=== PATIENT | male | born 1930 | race Caucasian/White ===

== ENCOUNTER 2018-01-07 09:43 | Inpatient (IN) | payer MEDICARE ==
[2018-01-07 10:15] LABS: #Basophils 0.1 thou/uL (0.0-0.2); #Eosinphils 0.1 thou/uL (0.0-0.7); #Lymphocytes 1.6 thou/uL (1.20-3.40); #Monocytes 0.8 thou/uL (0.11-0.59); #Neutrophils 14.9 thou/uL (1.40-6.50); %Basophils 0.5 % (0.0-1.0); %Eosinophils 0.4 % (0.0-10.0); %Monocytes 4.8 % (0.0-10.0); %Neutrophils 85.3 % (42.0-75.0); Hemoglobin 12.1 g/dL (14.0-18.0); Mean Corpuscular HGB CONC 32.7 g/dL (32.0-36.0); Mean Corpuscular Hemoglobin 29.3 pg (27.0-31.0); Mean Corpuscular Volume 89.6 fL (78.0-98.0); Mean Platelet Volume 10.8 fL (7.4-10.4); Platelet Count 209 thou/uL (130-400); RBC Distribution Width 13.1 % (11.5-14.5); Red Blood Cell (RBC) Count 4.14 mill/uL (4.70-6.10); White Blood Cell (WBC) Count 17.5 thou/uL (4.8-10.8)
[2018-01-07 10:27] LABS: ALT (SGPT) 13 U/L (8-55); AST (SGOT) 13 U/L (5-34); Albumin 3.5 g/dL (3.4-4.8); Alkaline Phosphatase 136 U/L (40-150); Anion Gap 14 mmol/L (10-20); BUN (Urea Nitrogen) 28 mg/dL (8.4-25.7); Bilirubin, Total 0.4 mg/dL (0.2-1.2); CK (CPK) 31 U/L (30-200); Calc. Creatinine Clearance 0 mL/min (70-130); Calcium 9.5 mg/dL (7.8-10.44); Carbon Dioxide 22 mmol/L (23-31); Chloride 110 mmol/L (98-107); Estimated GFR-MDRD 71; Globulin 2.7 g/dL (2.4-3.5); Glucose 102 mg/dL (83-110); Potassium 3.1 mmol/L (3.5-5.1); Protein, Total 6.2 g/dL (5.8-8.1); Sodium 143 mmol/L (136-145)
[2018-01-07 10:28] LABS: CKMB 3.1 ng/mL (0-6.6)
[2018-01-07 10:51] LABS: Lipase 7 U/L (8-78)
[2018-01-07] MEDS ORDERED: Potassium Chloride 20 MEQ TAB ONE (10:51)
--- NOTE | 2018-01-07 11:46 | CT ---
CTA OF THE CHEST AND ABDOMEN WITH CONTRAST: Date: 01/07/18 HISTORY: Abdominal pain that is severe in the epigastrium and pulsatile aorta. TECHNIQUE: Multiple contiguous axial images were obtained in a CTA of the chest and abdomen with contrast. 3D sa gittal and coronal MIP reformats were performed. FINDINGS: Emphysematous changes are seen in the lungs. No suspicious pulmonary nodule is seen. No focal infiltr ate is present. No pneumothorax or pleural effusion seen. There is a large exophytic mass emanating from the right kidney measuring approximately 4.6 cm in siz e. This is suspicious for a renal cell carcinoma. A small hypodensity emanating from the posterior as pect of the right kidney likely represents a small, simple cyst. A 1.4 cm cyst is seen in the liver. The gallbladder, adrenal glands, spleen, and pancreas are unremarkable. There is a hypodensity in the left kidney, measuring 1.6 cm in size, which likely represents a cyst. The visualized large and small bowel are unremarkable. No abdominal adenopathy is seen. The thoracic aorta is normal in caliber without evidence of dissection or aneurysmal dilatation. Athe rosclerotic disease is seen in the descending aorta. The infrarenal aorta demonstrates severe atheros clerotic disease without aneurysmal dilatation or focal stenosis. The celiac trunk, SMA, and KIMBERLY are patent. There is severe atherosclerotic disease at the ostia of the celiac trunk and SMA. A single re nal artery is seen on each side. Both of the renal arteries demonstrate severe diffuse atheroscleroti c disease. There is severe diffuse atherosclerotic disease in the internal and external iliac arteri es. IMPRESSION: 1. No evidence of aneurysmal dilatation or dissection of the aorta. 2. Right renal mass is suspicious for a renal cell neoplasm. Urologic consultation is recommended. 3. Renal cysts. 4. Hepatic cyst. 5. There is severe atherosclerotic disease in the aorta and its branch vessels. POS: ABELARDO
[2018-01-07] MEDS ORDERED: Iopamidol 370 76% 100 ML VIAL ONE (13:02)
[2018-01-07 13:06] VITALS: BMI 18.7
[2018-01-07 13:53] LABS: Troponin I 0.044 ng/mL (< 0.028)
--- NOTE | 2018-01-07 14:18 | PDOC.FPRHP ---
- History of Present Illness Chief Complaint: Abdominal Pain History of Present Illness: Mr Alvarez is a 87yo male with pmh of COPD, A-fib, BPH, HTN, and HLD presenting with severe abdominal pain and diarrhea. He is from [place] and is currently in town to visit grandchildren. Crampy periumbilical abdominal pain started one week ago and stopped this morning. He has also had episodes of watery diarrhea, reports only 1x per day. Pain reduced from 7/10-> 3/10 with BM. The pain actually started last March but was much less severe in intensity and was also relieved by BM's at that time. He has this pain ~1x per month. Reports that no food triggers the abdominal pain or diarrhea. Currently in 0/10 pain. Reports seeing a specialist last Jun and being diagnosed with "something with a lot of gas" and being instructed to avoid certain foods. Also reports 35lb wt loss since March that he attributes to food aversion for fear it may cause the pain to return or worsen. Denies bloody stool, nausea, vomiting, fever, chills, or constipation. He presented to an OSH where a CT was preformed showing a right renal mass and infrarenal thrombus without aneurysmal dilation or dissection. He denies any flank pain, hematuria or changes in urination. ED Course: EKG, CT scan preformed. Cardiology was consulted for EKG findings of a-fib, bradycardia, PVC's. Nephrology was consulted for renal mass. K+ replaced. IVFs and C diff test. - Allergies/Adverse Reactions Allergies Allergy/AdvReac Type Severity Reaction Status Date / Time No Known Allergies Allergy Verified 01/07/18 13:05 - Home Medications Medication Instructions Recorded Confirmed Type Atorvastatin Calcium 40 mg PO DAILY 01/07/18 01/07/18 History Cholecalciferol (Vitamin D3) 400 unit PO BID 01/07/18 01/07/18 History [Vitamin D3] Finasteride 5 mg PO DAILY 01/07/18 01/07/18 History Lactose-Reduced Food [Ensure 237 ml PO BID 01/07/18 01/07/18 History Enlive] Lisinopril 10 mg PO DAILY 01/07/18 01/07/18 History Pramipexole Di-HCl [Pramipexole 0.25 mg PO BID 01/07/18 01/07/18 History Dihydrochloride] Terazosin HCl 10 mg PO HS 01/07/18 01/07/18 History Tiotropium [Spiriva Handihaler] 18 mcg PO BID 01/07/18 01/07/18 History - History PMHx: COPD, A-fib, HTN, HLD, Restless leg, CVA 1992, CAD s/p TN 1992 PSHx: carpal tunnel release right wrist FHx: Mother- brain cancer. Father- of stroke Social: Current smoker 1/2 pk per day, 70yrs. Denies drug or alcohol use. - Review of Systems General: reports: weight/appetite/sleep changes. denies: fever/chills ENT: denies: nasal congestion, rhinorrhea Respiratory: reports: shortness of breath (baseline from COPD). denies: cough Cardiovascular: denies: chest pain, edema Gastrointestinal: reports: diarrhea, abdominal pain. denies: nausea, vomiting, constipation, GI bleeding Genitourinary: reports: other (no hematuria or flank pain). denies: dysuria Skin: denies: rashes, lesions Musculoskeletal: denies: pain, swelling Neurological: denies: syncope, weakness - Vital signs BP: 126/62 HR: 61 RR: 20 Tmax: 98.0 Pox: 97% on RA Wt: 64.4kg - Physical Exam Constitutional: NAD, awake, alert and oriented, well developed HEENT: normocephalic and atraumatic, EOMI, MMM, oropharynx clear Neck: trachea midline Heart: pulses present, no edema, other (Bradycardic, irregularly irregular) -Heart: Bradycardic, irregular Lungs: other (Wheezing bilaterally) -Lungs: Scattered wheezing Abdomen: soft, non-tender, bowel sounds present FMR H&P: Results - Labs Result Diagrams: 01/08/18 04:39 01/08/18 04:39 Lab results: WBC 17.5 thou/uL (4.8-10.8) H 01/07/18 10:00 Hgb 12.1 g/dL (14.0-18.0) L 01/07/18 10:00 Hct 37.1 % (42.0-52.0) L 01/07/18 10:00 MCV 89.6 fL (78.0-98.0) 01/07/18 10:00 Plt Count 209 thou/uL (130-400) 01/07/18 10:00 Neutrophils % 85.3 % (42.0-75.0) H 01/07/18 10:00 Sodium 143 mmol/L (136-145) 01/07/18 10:00 Potassium 3.1 mmol/L (3.5-5.1) L 01/07/18 10:00 Chloride 110 mmol/L (98-107) H 01/07/18 10:00 Carbon Dioxide 22 mmol/L (23-31) L 01/07/18 10:00 BUN 28 mg/dL (8.4-25.7) H 01/07/18 10:00 Creatinine 1.00 mg/dL (0.7-1.3) 01/07/18 10:00 Glucose 102 mg/dL (83-110) 01/07/18 10:00 Lactic Acid 1.8 mmol/L (0.5-2.2) 01/07/18 10:00 Calcium 9.5 mg/dL (7.8-10.44) 01/07/18 10:00 Total Bilirubin 0.4 mg/dL (0.2-1.2) 01/07/18 10:00 AST 13 U/L (5-34) 01/07/18 10:00 ALT 13 U/L (8-55) 01/07/18 10:00 Alkaline Phosphatase 136 U/L (40-150) 01/07/18 10:00 Creatine Kinase 31 U/L (30-200) 01/07/18 10:00 CK-MB (CK-2) 3.1 ng/mL (0-6.6) 01/07/18 10:00 Serum Total Protein 6.2 g/dL (5.8-8.1) 01/07/18 10:00 Albumin 3.5 g/dL (3.4-4.8) 01/07/18 10:00 Lipase 7 U/L (8-78) L 01/07/18 10:00 - EKG Interpretation EKG: a fib with unifocal premature ventricular complexes with frequent premature ventricular complexes - Radiology Interpretation CT scan - abdomen Status: report reviewed by me Additional comment: 4cm mass arisng from right kidney suspicious for malignancy. 2.8cm infrarenal calcifications and some thrombus without dilation. FMR H&P: A/P - Problem List (1) Renal mass Current Visit: Yes Status: Acute Code(s): N28.89 - OTHER SPECIFIED DISORDERS OF KIDNEY AND URETER (2) Atrial fibrillation Current Visit: Yes Status: Chronic Code(s): I48.91 - UNSPECIFIED ATRIAL FIBRILLATION (3) Bradycardia Current Visit: Yes Status: Acute Code(s): R00.1 - BRADYCARDIA, UNSPECIFIED (4) Leukocytosis Current Visit: Yes Status: Acute Code(s): D72.829 - ELEVATED WHITE BLOOD CELL COUNT, UNSPECIFIED (5) Hypokalemia Current Visit: Yes Status: Acute Code(s): E87.6 - HYPOKALEMIA (6) Normocytic anemia Current Visit: Yes Status: Acute Code(s): D64.9 - ANEMIA, UNSPECIFIED (7) Gastroenteritis Current Visit: Yes Status: Acute Code(s): K52.9 - NONINFECTIVE GASTROENTERITIS AND COLITIS, UNSPECIFIED (8) HLD (hyperlipidemia) Current Visit: Yes Status: Chronic Code(s): E78.5 - HYPERLIPIDEMIA, UNSPECIFIED (9) HTN (hypertension) Current Visit: Yes Status: Chronic Code(s): I10 - ESSENTIAL (PRIMARY) HYPERTENSION (10) COPD (chronic obstructive pulmonary disease) Current Visit: Yes Status: Chronic (11) Restless leg syndrome Current Visit: Yes Status: Chronic (12) Tobacco abuse Current Visit: Yes Status: Chronic Code(s): Z72.0 - TOBACCO USE - Plan Mr Alvarez is a 87yo male with pmh of a-fib, 1. A-fib, Bradycardia, PVC's - Troponins .05-> .044 - Asymptomatic - hx of "irregular heartbeat" - Cardiology Consulted - Echo - Mg, Phos, TSH 2. Renal Mass on CT scan - No hematuria, dysuria, or urinary changes - Urology Consulted 3. Abdominal pain, diarrhea likely 2/2 gastroenteritis - CT showed no evidence of aortic dissection - WBC 17.5 - CBC in AM - C diff pending - Fecal lactoferrin 4. Leukocytosis - likely 2/2 to gastroenteritis - no other sources for infection 5. Normocytic Anemia - could be a result of a Renal cell carcinoma - Continue to monitor 6. Hypokalemia - 3.1 - 40 PO in ED - BMP in AM - Replace another 40 7. COPD - Continue Spiriva 8. HLD - Continue Atorvastatin 9. BPH - Continue Finesteride and Terazosin 10. HTN - Continue Lisinopril 11. Restless leg - Continue Pramipexole 12. Tobacco Abuse - Doula regarding cessation DVT ppx: SCDs & Lovenox GI ppx: None indicated Code Status: DNR/DNI Disposition/LOS: Admit to Tele LOS likely >2 days FMR H&P: Upper Level - Pertinent history 87 y/o M PMHx of a-fib, COPD, CAD, HTN, and HLD presents with abdominal pain and diarrhea. The abdominal pain has been going on since March and worsened this past week, but improves with bowel movements. The patient was seen by a physician in [place] who altered his diet to decrease his "gas pain". The patient denies any hematochezia, melena, or fevers. He has a 20 lb weight loss over the past year, but he has adjusted his diet due to his abdominal pain and diarrhea, so thinks it may be due to this. - Pertinent findings Temp: 97.5 HR 44 RR 16 O2 sat 93% on RA Gen: Well-developed, well-nourished elderly male in NAD CV: bradycardic, irregularly irregular rhythm, 2+ radial and pedal pulses Resp: No use of accessory muscles of respiration, decreased breath sounds with diffuse wheezes Abd: non-distended, soft, mildly TTP in RLQ, LLQ, normoactive bowel sounds, no rebound or guarding Back: no CVA tenderness Ext: no edema - Plan Date/Time: 01/07/18 1341 I, Asiya Drummond, have evaluated this patient and agree with findings/plan as outlined by product management internship resident. Pertinent changes/additions are listed here. 1. Bradyarrhythmia - Will admit to tele. Patient is asymptomatic. EKG bradycardic and showed evidence of PVC's, a-fib and possible a-flutter with aberrancy. Consult cardiology. Will get echo. Will check TSH, mag, phosphorous. 2. R Renal Mass - New 4.6 cm R renal mass seen on CTA that is concerning for RCC. Pt has had recent weight loss. Will consult urology and check a UA. 3. Gastroenteritis - Pt has a WBC of 17.5 with 85% neutrophils. He is having 1- 2 watery BMs/day over the last week. He may have IBS, but will check C. diff and fecal lactoferrin. LR @ 105 mL/hr. 4. ALEXANDREA - Unknown baseline. Initial Cr 1.0 with GFR of 71. Likely 2/2 dehydration with recent h/o diarrhea. Will give IVF and monitor. 5. Leukocytosis - Initial WBC of 17.5 with no other signs of systemic infection. Likely 2/2 Gastroenteritis. Will give IVF and monitor for improvement. 6. Indeterminate Troponins - initial trop was 0.05, but repeat trended down to 0.044. Patient has no chest pain. EKG showed no ST/T wave changes concerning for acute ischemia. Will repeat if new chest pain. Will start aspirin. 7. Normocytic Anemia - mild anemia of 12.1, could be 2/2 RCC if this diagnosis is confirmed. 8. Hypokalemia - Will replete and monitor. 9. HLD - Continue home meds 10. HTN - Continue home meds 11. a-fib - not on any meds at baseline. Will monitor on tele. CHADs2-Vasc score 5, Has-Bled 2. Will discuss risks and benefits of anticoagulation. 12. COPD - Not in an acute exacerbation. Will continue home meds plus PRN duonebs. 13. h/o CVA - Severe atherosclerotic disease seen on CTA as well. Continue statin. 14. CAD s/p TN - Continue statin. 15. BPH - Will continue home meds. 16. Tobacco Abuse - Doula about cessation. VTE ppx: Lovenox Code status: DNR Attending Addendum - Attending Addendum Date/Time: 01/08/18 0906 I personally evaluated the patient and discussed the management with Dr. Barber /Hoda. I agree with the History, Examination, Assessment and Plan documented above with any addition or exceptions noted below. Please see event note dated 01/07/18 for further details.
[2018-01-07] MEDS ORDERED: Acetaminophen 325 MG TAB PO PRN (15:51)
[2018-01-07] MEDS ORDERED: Potassium Chloride 20 MEQ TAB PO SCH (16:15)
[2018-01-07] MEDS: Lactated Ringer's 1,000 ML IV SCH (16:38)
--- NOTE | 2018-01-07 16:39 | PDOC.EVN ---
Attending Addendum - Attending Addendum Date/Time: 01/07/18 7068 I personally evaluated the patient and discussed the management with Dr. Barber /Hoda. I agree with the History, Examination, Assessment and Plan documented in the H& P with any addition or exceptions noted below. Patient with history of COPD, CAD presenting with several month history of periumbilical abdominal pain associated with cramping, flatulence, and watery diarrhea. He reports these symptoms are unchanged with foods, but that over the last 2 weeks his symptoms have been worse. He presents today due to that pain. His exam is overall benign except for temporal wasting and supraclavicular wasting. He admits to weight loss of 30 pounds over the last few months. His HR has been irregular and in the 40s, EKG shows multiple abnormalities culminanating in an irregular bradydysrhythmia. He is asymptomatic when ambulating or standing. Labs show leukocytosis and elevated creatinine, unknown baseline. Imaging is pertinent for diffuse atherosclerosis, and a R renal mass concerning for RCC. Patient to be admitted to telemetry for further evaluation and workup of his bradycardia, abdominal pain, and renal mass. Cardiology and Urology to be consulted. Will obtain UA, full electrolytes, and fecal labs to evaluate his abdominal pain. Anticipate several days hospitalization and further mgmt per specialist evaluation and recommendations.
[2018-01-07 16:49] LABS: Magnesium 1.6 mg/dL (1.6-2.6); Phosphorus 3.1 mg/dL (2.3-4.7)
[2018-01-07] MEDS ORDERED: Albuterol Sulfate 2.5 mg/3 ml Neb NEB PRN (17:00)
[2018-01-07 18:38] LABS: Bilirubin Negative (Negative); Blood, Urine Negative (Negative); Clarity CLEAR (Clear); Glucose, Urine (Dipstick) Negative (Negative); Leukocyte Negative (Negative); Nitrite Negative (Negative); Protein, Urine (Dipstick) 100 mg/dL (Neg-Trace); Urobilinogen 0.2 mg/dL (0.2-1.0); pH, Urine 5.5 (5.0-9.0)
[2018-01-07 18:41] LABS: Bacteria/HPF None Seen HPF (None Seen); Hyaline Casts/LPF 0-3 HYALINE CAST LPF (0-3 Hyaline); Pathc Cast-AUWi Flag 0.29 (0-2.49); RBC/HPF 0-3 HPF (0-3); Squamous Epithelial 0-3 HPF (0-3); WBC/HPF 0-3 HPF (0-3)
[2018-01-07 18:42] LABS: Specific Gravity, Urine 1.043 (1.002-1.036)
[2018-01-07] MEDS: Ipratropium Bromide 2.5 ml Neb NEB SCH (20:27)
[2018-01-07] MEDS ORDERED: Non-Formulary Item 1 EACH (Lactose-Reduced Food [Ensure Enlive] 237 ML) PO SCH (21:00)
[2018-01-07] MEDS: Cholecalciferol (Vitamin D3) 400 UNITS TAB PO SCH (21:08)
[2018-01-07] MEDS: Pramipexole Di-HCl 0.25 MG TAB PO SCH (21:08)
[2018-01-07] MEDS: Terazosin HCl 5 MG CAP PO SCH (21:09)
[2018-01-07] MEDS ORDERED: Rivaroxaban 10 MG TAB PO SCH (23:30)
[2018-01-08] MEDS: Ipratropium Bromide 2.5 ml Neb NEB SCH ×4 (00:29→18:23)
--- NOTE | 2018-01-08 00:39 | CON ---
DATE OF CONSULTATION: 01/07/2018 REASON FOR CONSULTATION: Right renal mass, 4 cm in diameter. HISTORY OF PRESENT ILLNESS: Mr. 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 The patient has had ongoing problems with abdominal pain that has b een present for at least 6 or 7 months by his report. He has previously seen a specialist [place] about it, but did not receive any specific treatments. [facility] on 01[facility]07[facility] scanning of the abdomen and pelvis which revealed the presence o f the patient's right renal mass for which I am consulted as well as an abdominal aortic aneurysm whi ch is relatively small and in addition, calcifications of vasculature of the superior mesenteric jailene ry, renal arteries and significant portions of his aorta itself. Patient is a long-term smoker, grisel fuentes started at age 16 and is still smoking about 1/2 pack per day, he has been up to as many as three packs per day. Conservatively speaking, the patient has at least [id number] cigarette smoking his tory. He does suffer from COPD. Patient has a history of atrial fibrillation, but on evaluation her e seems to have primarily premature atrial contractions PACs. Patient does have a history of benign prostatic hypertrophy, hypertension as well and the peripheral vascular disease which has been identi fied on his CT scan. Patient denies any history of coronary artery stenting or coronary chest pain a t the present time, does not have any implant such as pacemakers or vascular implants. Patient's presenting complaint is that of abdominal pain. He has had this evaluated at least as a cl inic visit in [place]. Here, he reports abdominal pain which he reports crosses his abdomen in a h orizontal level. He reports it is sometimes on the right side and sometimes on the left. He does no manan that he has pain in his abdomen within 30 minutes of eating and as such has been avoiding eating large meals, this seems to improve his pain symptoms. PAST MEDICAL HISTORY: 1. COPD secondary to cigarette smoking. 2. History of atrial fibrillation or irregular heartbeat. 3. Hypertension. 4. History of cerebrovascular accident in 1992. 5. Coronary artery disease status post myocardial infarction in 1992. He has had no revascularizati on or stenting. He reports that he has many collaterals in his heart and did not require a stent bas ed on that. PAST SURGICAL HISTORY: Patient had a right carpal tunnel release. No other surgical history. No ge nitourinary surgeries in the past. FAMILY MEDICAL HISTORY: Patient's mother had brain cancer and the patient's father of a stroke. 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 He is a and has a current one-half pack per day smoker. He has smoked up to 3 packs a day in the past and has at least a 100- pack-year cigarette smoking history. He started around age 16. Patient does not use drugs or alcoho l. REVIEW OF SYSTEMS: General: Patient has lost some weight over the last year due to his decreased ab ility to eat. He feels more comfortable if not eating as much of food as he had in the past. A larg e meal could upset him for some time. He does not report any signs of infection such as fever or chi lls. HEENT: Negative. Pulmonary: Patient does have baseline disease with resulting shortness of b reath and utilizes a nebulizer daily for that, only one nebulizer treatment required in the morning. He is not coughing up any blood or sputum of significance. Cardiovascular: Patient denies specific ally chest pain. He does report that he has an irregular heartbeat. Gastrointestinal: Patient repo rts diarrhea and abdominal pain. He reports a postprandial stomach discomfort which begins about 30 minutes after eating a meal. He inquires as to whether drinking milk might make him better. He noti adriano some improvement if he drinks milk in his symptoms. Genitourinary: Patient specifically denies flank pain and hematuria. He does not report any urinary symptoms. He does not report difficulties with his urinary stream. Skin: No specific complaints. No surgical scars except on his extremity o n the right. Musculoskeletal: Negative except for the carpal tunnel release. Neurologic: No compl aints or disorders. PHYSICAL EXAMINATION: VITAL SIGNS: The patient's pulse is 55. I evaluated his cardiac system on both in person and on the personnel monitor, he has PACs, not atrial fibrillation. Current temperature 98.3, respiratory rate is 22, and his O2 saturation is 96% on room air, blood pressure is 169/72. GENERAL: This is a pleasant, awake and alert, GCS 15, white male in no apparent distress. HEENT: Extraocular movements are intact. Sclerae are anicteric. Oropharynx is clear. NECK: Supple. LUNGS: Clear to auscultation bilaterally. He has moderate COPD type changes. CARDIAC: The patient has an irregular cardiac rhythm. He is moderately bradycardic at exam. ABDOMEN: Soft and nontender. He has slight subtle fullness on the right side. There is no fullness on the left side. The patient's aorta can be palpated in the midline. There is no suprapubic fulln ess. GENITOURINARY: Phallus is circumcised. Urethral meatus appears adequate. Testes are found present bilaterally in the scrotum. They are smooth, anodular, nontender. There is no evidence of inguinal canal hernia. RECTAL: Digital rectal examination is performed and finds a rock hard prostate gland which palpates to greater than 45 grams. It would be considered to be suspicious for malignancy if this was a maya rn. LABORATORY STUDIES: Patient's white count is elevated to 17,500, hemoglobin is 12.1 with hematocrit of 37.1. There is relative left shift with 85% neutrophils. The ANC is elevated at 14.9. Chemistri es show the patient's blood urea nitrogen elevated at 28 with a creatinine of 1.0, potassium low at 3 .1, carbon dioxide 22. Cardiac troponins are moderately elevated at 0.044 and 0.050 on the first two tests. His estimated GFR by the MDRD formula is 71. I would question the result based on the patie nt's body protein content. This is probably not an accurate estimate of his true kidney function. RADIOLOGIC STUDIES: A CT dissection protocol was performed this morning at 9:55 a.m. on 01/07/2018. This study demonstrates atherosclerotic disease in the aorta with some plaque in the infrarenal loca tion. There is some wall thickening in this area and peripheral calcification. This is not at this diameter less than 2 cm overall diameter risky. There are calcifications in the superior mesenteric artery and related vasculature. Renal cysts are present in both kidneys; in the right kidney, there is a solid renal mass in the mid peripheral anterior portion measuring over 4 cm in diameter which is highly suspicious for renal cell carcinoma. There is a low density hepatic cyst present. ASSESSMENT AND PLAN: 1. Renal mass. This is not an emergency condition, certainly can be managed as an outpatient. The patient at the present time is disinclined to proceed with any intervention. I did discuss available options would include observation as he is considering versus actual interventions which would be pa rtial nephrectomy or radical nephrectomy on the right. Radiofrequency ablation would require operati ve exploration as the patient's colon anteriorly is in contact with the renal mass. A combined radio frequency ablation and partial nephrectomy could also be performed. Cryotherapy can also be delivere d, but once again require operative exploration and release of the colon along the white line of Told t to expose the tumor went out to contact with the colon. This patient may follow up with me in my o ffice as an outpatient. He may wish to undergo additional imaging studies over time. Alternatively, he may follow up at the [facility] in [place] regarding his renal mass. 2. Enlarged prostate gland with firmness. Patient's PSA number is unknown. He has an indurated pro state gland generally in patients with less than 10 years of life expectancy PSA testing and follow u p is not recommended unless the patient is in urinary retention and he has no complaints along those lines at this point. I would not recommend PSA testing in this patient unless he develops an obstruc tive urinary process. 3. Abdominal pain presentation. This could reflect ischemic bowel or a process which is internal to the lumen of the stomach or duodenum. The EGD might be helpful in consideration of gastroenterology evaluation should be given. 4. Infectious Disease concerns. Patient has elevated white count and left shift, part of which may be secondary to dehydration. Patient does not appear to have an infection at the present time except relation to his abdominal pain complaints which may indicate some type of infectious process in the bowel. Consideration of stool sample evaluation might also be helpful. Over 70 minutes of initial evaluation consultation assessment time was spent in the assessment of thi s patient today.
[2018-01-08] MEDS: Lactated Ringer's 1,000 ML IV SCH (02:44)
--- NOTE | 2018-01-08 02:47 | CON ---
NEPHROLOGY CONSULTATION DATE OF CONSULTATION: 01/07/2018 CONSULTING PHYSICIAN: Dr. Ojeda REASON FOR CONSULTATION: Right renal mass. REASON FOR ADMISSION: Weakness. HISTORY OF PRESENT ILLNESS: An 87-year-old male with history of atrial fibrillation, COPD, hypertens ion, hyperlipidemia, CVA, came to the hospital for abdominal pain, weakness, and diarrhea, was found to have a right renal mass and Nephrology was consulted. The patient denies any back pain, no chest pain. No hematuria, no fever, or chills. No nausea, vomiting, or diarrhea. PAST MEDICAL HISTORY: Possible COPD, atrial fibrillation, hypertension, hyperlipidemia, restless leg syndrome, CVA, CAD. PAST SURGICAL HISTORY: Carpal tunnel release surgery. HOME MEDICATIONS: Spiriva, lactulose, vitamin D, terazosin. ALLERGIES: No known drug allergies. SOCIAL HISTORY: No smoking, alcohol. FAMILY HISTORY: No history of ____ disease. REVIEW OF SYSTEMS: The following complete review of systems was negative, unless otherwise mentioned in the HPI or below: Constitutional: Weight loss or gain, ability to conduct usual activities. Sk in: Rash, itching. Eyes: Double vision, pain. ENT/Mouth: Nose bleeding, neck stiffness, pain, te nderness. Cardiovascular: Palpitations, dyspnea on exertion, orthopnea. Respiratory: Shortness of breath, wheezing, cough, hemoptysis, fever or night sweats. Gastrointestinal: Poor appetite, abdom inal pain, heartburn, nausea, vomiting, constipation, or diarrhea. Genitourinary: Urgency, frequenc y, dysuria, nocturia. Musculoskeletal: Pain, swelling. Neurologic/Psychiatric: Anxiety, depressio n. Allergy/Immunologic: Skin rash, bleeding tendency. PHYSICAL EXAMINATION: GENERAL: This is a well-built male in no apparent distress. VITAL SIGNS: Temperature 98.3, pulse 55, respiratory rate 18, blood pressure 116/70. HEENT: Head is atraumatic, normocephalic. Oral mucosa is moist. NECK: Supple. CARDIOVASCULAR: S1, S2 heart. Rate and rhythm regular. RESPIRATORY: Clear. MUSCULOSKELETAL: 1+ edema. DERMATOLOGIC: No skin rash. NEUROLOGIC: Alert, awake. PSYCHIATRIC: Normal mood and affect. LABORATORY: Hemoglobin 12.1, potassium 3.1, BUN is 28, creatinine is 1.0. IMAGING: CT dissection protocol showed a renal cyst and right renal mass suspicious for renal cell c arcinoma. ASSESSMENT AND PLAN: 1. Right renal mass. Urology evaluation 2. Hypokalemia, replace and monitor. 3. Chronic kidney disease stage 2, renal function is stable. 4. Mild anemia. 5. Edema, controlled. 6. Hypertension. Titrate medication. I would recommend a urology evaluation for his right renal mass. Control blood pressure and replace potassium. Thank you for the consult.
--- NOTE | 2018-01-08 03:57 | CON ---
DATE OF CONSULTATION: 01/07/2018 HISTORY OF PRESENT ILLNESS: Griselda Alvarez is a pleasant 87-year-old white male , who presented with abdominal pain and diarrhea. He has had arrhythmias, previous cardiac history, and Cardiology consultation was requested. He currently lives in [place], but was here visiting grandchildren. In 1992, he states that he had a syncopal episode and was taken to [facility] in [place] and underwent further evaluation. From his description , it sounds as if he had a totally occluded coronary artery with collateral filling. He did not have stent placement or a PTCA performed. He states that four days later he had a stroke that weakened his right side; however, this improved. He denies any chest discomfort since that time. Approximately 2 years ago, he was placed on Xarelto for unclear reasons. He states he has been told for many years he had an extra heart beat and irregular heart rhythm; however, he denies that he has ever been told that he had atrial fibrillation. He also denies any history of deep venous thrombosis or pulmonary embolism. I assume that somewhere along the line someone saw atrial fibrillation and placed him on the Xarelto; however, he does not recall that. The patient has been found to be bradycardic here; however, he denies ever having any further syncopal episodes after his myocardial infarction in 1992. He denies any lightheadedness or dizziness. PAST MEDICAL HISTORY: Hypercholesterolemia, COPD, hypertension, restless leg, history of stroke in 1992, myocardial infarction in 1992, questionable history of atrial fibrillation. MEDICATIONS: At home included atorvastatin 40 daily; vitamin D3; finasteride 5 mg daily; Ensure b.i.d.; lisinopril 10 mg daily; terazosin 0.4 mg at bedtime; Spiriva HandiHaler; and apparently Xarelto, unknown dose. ALLERGIES: None. OPERATIONS: Right carpal tunnel release. SOCIAL HISTORY: Continues to smoke approximately one-half pack per day. He does not drink. FAMILY HISTORY: Negative for coronary artery disease. REVIEW OF SYSTEMS: Twelve-point review of systems unremarkable except for the abdominal pain. PHYSICAL EXAMINATION: VITAL SIGNS: Blood pressure 169/72, pulse of 55. HEENT: PERRL. NECK: Supple. CHEST: Reveals expiratory wheezing. CARDIOVASCULAR: S1 and S2 are normal, without any S3, S4, or murmurs. Carotid upstrokes normal, without bruits. ABDOMEN: Normal bowel sounds, without tenderness or organomegaly. EXTREMITIES: Revealed no clubbing, cyanosis, or edema. NEUROLOGIC: Grossly intact. SKIN: Warm and dry. LABORATORY DATA AND IMAGING: EKG reveals sinus bradycardia with PVCs. The EKG was incorrectly interpreted as atrial fibrillation. There is incomplete right bundle branch block. He also does not have any evidence of atrial fibrillation in looking at his rhythm strip, just sinus bradycardia with bigeminal PVCs at times. Hemoglobin 12.1, hematocrit 37.1, white count 17,500, platelets 209. Sodium 143, potassium 3.1, chloride 110, carbon dioxide 22, BUN 28, creatinine 1.0. Troponin I 0.050. TSH is normal. CTA of the chest revealed no aneurysmal dilatation or dissection. There was a right renal mass suspicious for renal cell carcinoma, renal and hepatic cysts, and atherosclerotic disease of the aorta, emphysematous changes seen in the lungs. The celiac trunk, SMA and KIMBERLY have severe atherosclerotic disease. IMPRESSION: 1. Coronary artery disease, status post myocardial infarction in 1992. From his description, it sounds as if he had a totally occluded vessel with collateral filling. 2. Cerebrovascular accident, 4 days after myocardial infarction. 3. Asymptomatic bradycardia - he here does not have any evidence of atrial fibrillation with incorrect interpretation by the computer. Definite P waves on the EKG. He appears to be asymptomatic from this without any history of syncope, lightheadedness, or dizziness. This does not require any treatment; however, beta blockers should be avoided. 4. Questionable history of atrial fibrillation. He denies having atrial fibrillation, but apparently is taking Xarelto. 5. Hypertension. 6. Hyperlipidemia. 7. The patient continues to smoke. 8. Abdominal pain, questionable ischemic bowel disease. PLAN: Echocardiogram will be performed. The patient continued to be monitored. He does not require any treatment for his asymptomatic bradycardia at this time. Even though there is no evidence here of atrial fibrillation, I would restart his Xarelto at the time of discharge, so he can go back home for further evaluation of his current problems. LAURA
[2018-01-08 05:19] LABS: #Basophils 0.1 thou/uL (0.0-0.2); #Eosinphils 0.1 thou/uL (0.0-0.7); #Lymphocytes 1.6 thou/uL (1.20-3.40); #Monocytes 0.7 thou/uL (0.11-0.59); #Neutrophils 10.8 thou/uL (1.40-6.50); %Basophils 0.5 % (0.0-1.0); %Eosinophils 0.7 % (0.0-10.0); %Lymphocytes 12.3 % (21.0-51.0); %Monocytes 5.2 % (0.0-10.0); %Neutrophils 81.3 % (42.0-75.0); Mean Corpuscular Hemoglobin 29.1 pg (27.0-31.0); Mean Corpuscular Volume 90.9 fL (78.0-98.0); Mean Platelet Volume 9.8 fL (7.4-10.4); Platelet Count 218 thou/uL (130-400); RBC Distribution Width 13.1 % (11.5-14.5); Red Blood Cell (RBC) Count 3.78 mill/uL (4.70-6.10); White Blood Cell (WBC) Count 13.3 thou/uL (4.8-10.8)
--- NOTE | 2018-01-08 05:37 | PDOC.FM ---
- Subjective Subjective: Mr Alvarez is a 87yo male with pmh of COPD, A-fib, BPH, HTN, and HLD presenting with severe abdominal pain and diarrhea. Found to have EKG changes and a renal mass on CT. Today denies any pain and expresses he feels ready to go home. He was able to communicate the plan that was discussed from both Urology and Cardiology. - Objective MAR Reviewed: Yes Vital Signs & Weight: Vital Signs (12 hours) Temp Pulse Resp BP BP Pulse Ox 01/08/18 03:22 178/60 H 01/08/18 03:05 98.3 F 54 L 20 95 01/08/18 00:05 168/58 H 01/07/18 23:07 99.2 F 59 L 20 96 01/07/18 20:27 65 18 96 01/07/18 20:00 99.2 F 59 L 20 96 01/07/18 19:19 98.3 F 55 L 22 H 96 I&O: 01/06/18 01/07/18 01/08/18 06:59 06:59 06:59 Intake Total 340 Balance 340 Result Diagrams: 01/08/18 04:39 01/08/18 04:39 <Angella Barber - Last Filed: 01/08/18 12:54> - Objective Vital Signs & Weight: Vital Signs (12 hours) Temp Pulse Resp BP BP BP Pulse Ox 01/08/18 11:24 98.0 F 81 16 164/72 H 95 01/08/18 11:13 98.1 F 66 16 95 01/08/18 11:08 164/72 H 01/08/18 07:42 98.1 F 66 16 147/64 H 93 L 01/08/18 03:22 178/60 H 01/08/18 03:05 98.3 F 54 L 20 95 Weight Admit Weight 64.4 kg Weight 64.4 kg I&O: 01/07/18 01/08/18 01/09/18 06:59 06:59 06:59 Intake Total 340 Balance 340 Result Diagrams: 01/08/18 04:39 01/08/18 04:39 <Henri Sauer - Last Filed: 01/08/18 13:01> Phys Exam - Physical Examination Constitutional: NAD HEENT: PERRLA, moist MMs Respiratory: wheezing present Cardiovascular: RRR Gastrointestinal: soft, non-tender, positive bowel sounds Musculoskeletal: no edema, pulses present Neurological: moves all 4 limbs Psychiatric: normal affect, A&O x 3 Skin: no rash, cap refill <2 seconds <Angella Barber - Last Filed: 01/08/18 12:54> Dx/Plan (1) Renal mass Code(s): N28.89 - OTHER SPECIFIED DISORDERS OF KIDNEY AND URETER Status: Acute (2) Atrial fibrillation Code(s): I48.91 - UNSPECIFIED ATRIAL FIBRILLATION Status: Chronic (3) Bradycardia Code(s): R00.1 - BRADYCARDIA, UNSPECIFIED Status: Acute (4) Leukocytosis Code(s): D72.829 - ELEVATED WHITE BLOOD CELL COUNT, UNSPECIFIED Status: Acute (5) Hypokalemia Code(s): E87.6 - HYPOKALEMIA Status: Acute (6) Normocytic anemia Code(s): D64.9 - ANEMIA, UNSPECIFIED Status: Acute (7) Gastroenteritis Code(s): K52.9 - NONINFECTIVE GASTROENTERITIS AND COLITIS, UNSPECIFIED Status : Acute (8) HLD (hyperlipidemia) Code(s): E78.5 - HYPERLIPIDEMIA, UNSPECIFIED Status: Chronic (9) HTN (hypertension) Code(s): I10 - ESSENTIAL (PRIMARY) HYPERTENSION Status: Chronic (10) COPD (chronic obstructive pulmonary disease) Status: Chronic (11) Restless leg syndrome Status: Chronic (12) Tobacco abuse Code(s): Z72.0 - TOBACCO USE Status: Chronic (13) Abnormal prostate exam Code(s): R39.89 - OTHER SYMPTOMS AND SIGNS INVOLVING THE GENITOURINARY SYSTEM Status: Acute - Plan Plan: Mr Alvarez is a 87yo male with pmh of COPD, A-fib, BPH, HTN, and HLD presenting with severe abdominal pain and diarrhea. 1. A-fib, Bradycardia, PVC's - Asymptomatic - hx of "irregular heartbeat" - Monitor on tele - HR in the 50's, he is asymptomatic - CHADs2-Vasc: 5 - Cardiology Consulted - Mg 1.6, Phos 3.1, TSH 0.90 - Avoid BB's due to bradycardia, no other treatment recommended - Currently not in A-fib - Started Xarelto 01/07/[address] Mass on CT scan - No hematuria, dysuria, or urinary changes - UA no blood, no signs of infection - Urology Consulted, thorough exam and recommendations - Also abnormal prostate exam per Urology supporting possible malignancy dx - Urology recommends outpatient F/u. Discussed surgical options with patient. - No PSA testing in this pt with LE <10yrs and no urinary obstructive symptoms. Urinary symptoms developing in the future would warrant PSA testing. 3. Abdominal pain, diarrhea likely 2/2 gastroenteritis vs IBS vs ischemic bowel - CT showed no evidence of aortic dissection - WBC 17.5 - CBC in AM - LR @105ml/hr - C diff pending - Fecal lactoferrin pending - Urology recommended GI consult for EGD, pt is currently asymptomatic, may consider in the future - CTA may be helpful in r/o ischemic bowel while patient is having symptoms, this can be followed up outpatient 4. Leukocytosis - likely 2/2 to gastroenteritis - UA- no signs of infection - no other sources for infection 5. Normocytic Anemia - could be a result of a Renal cell carcinoma - Continue to monitor 6. Hypokalemia - 3.1 - 40 PO in ED - BMP in AM - Replace another 40 7. ALEXANDREA - resolved - unknown baseline - likely 2/2 to dehydration with recent history of diarrhea - IVF & monitor 8. COPD - stable - Continue Spiriva 9. HLD - Continue Atorvastatin 10. BPH - Continue Finesteride and Terazosin 11. HTN - Continue Lisinopril 12. Restless leg - Continue Pramipexole 13. 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 Hx of CAD with Indeterminate Troponins - inital 0.05-> 0.044 - No chest pain - EKG: no ST/T wave changes concerning for acute ischemia - Start aspirin DVT ppx: SCDs & Lovenox GI ppx: None indicated Code Status: DNR/DNI Dispo: Stable, likely discharge today <Angella Barber - Last Filed: 01/08/18 12:54> Attending Addendum - Attending Addendum Date/Time: 01/08/18 6519 I personally evaluated the patient and discussed the management with Dr. Barber and team. I agree with and repeated the History, Examination, Assessment and Plan documented above with any addition or exceptions noted below. Very pleasant gentleman. No abd pain, n/v/f/c. He has had one loose BM yesterday, two today. No hematochezia/melena. No cp/sob. We had a long discussion about his likely malignancy. He is disinclined, as mentioned by urology, to pursue any treatment at this point. Concerning his diarrhea that has resolved, his c. diff is negative and his lactoferrin positive. We discussed the atherosclerotic disease of his abdomen, and he will follow up with his PCP and strict ED warnings were given and he voiced understanding. That said, I do not think this was intestinal angina, as it was not a/w eating, and doubt ischemic colitis in general with his rapid improvement. Cards will follow outpt for his bradycardia. Urology will follow outpatient as well for his renal mass. Likely home today. <Henri Sauer - Last Filed: 01/08/18 13:01>
[2018-01-08 05:39] LABS: Anion Gap 12 mmol/L (10-20); BUN (Urea Nitrogen) 25 mg/dL (8.4-25.7); Calc. Creatinine Clearance 53 mL/min (70-130); Calcium 9.2 mg/dL (7.8-10.44); Carbon Dioxide 23 mmol/L (23-31); Cardiac Risk 3.3 (Less than 4.5); Chloride 112 mmol/L (98-107); Cholesterol 104 mg/dl (< 200 Desired); Estimated GFR-MDRD 80; Glucose 99 mg/dL (83-110); HDL Cholesterol 32 mg/dL (>60 Neg Risk); LDL Cholesterol, Calculated 58 mg/dL; Sodium 143 mmol/L (136-145); Triglycerides 72 mg/dL (Less than 150)
[2018-01-08] MEDS ORDERED: Enoxaparin Sodium 40 MG/0.4 ML SYRINGE SC SCH (09:00)
[2018-01-08] MEDS ORDERED: Lisinopril 10 MG TAB PO SCH (09:00)
[2018-01-08] MEDS: Finasteride 5 MG TAB PO SCH (11:07)
[2018-01-08] MEDS: Lisinopril 10 MG TAB PO SCH ×2 (11:08→21:19)
[2018-01-08] MEDS: Atorvastatin Calcium 40 MG TAB PO SCH (11:13)
[2018-01-08] MEDS: Cholecalciferol (Vitamin D3) 400 UNITS TAB PO SCH ×2 (11:13→21:19)
[2018-01-08] MEDS: Pramipexole Di-HCl 0.25 MG TAB PO SCH ×2 (11:13→21:19)
--- NOTE | 2018-01-08 12:49 | EKG ---
Test Reason : Blood Pressure : / mmHG Vent. Rate : 052 BPM Atrial Rate : 048 BPM P-R Int : 000 ms QRS Dur : 096 ms QT Int : 490 ms P-R-T Axes : 000 061 021 degrees QTc Int : 455 ms Normal sinus rhythm with slow ventricular response Premature ventricular complexes Incomplete right bundle branch block Cannot rule out Inferior infarct , age undetermined Abnormal ECG Confirmed by MIGEL TAPIA ([id number]) on 01/08/2018 12:48:47 PM Referred By: DEBRA Confirmed By:MIGEL TAPIA
[2018-01-08] MEDS ORDERED: Rivaroxaban 10 MG TAB PO SCH (18:00)
[2018-01-08] MEDS: Terazosin HCl 5 MG CAP PO SCH (21:22)
[2018-01-09] MEDS: Ipratropium Bromide 2.5 ml Neb NEB SCH ×5 (00:01→18:22)
[2018-01-09 05:22] LABS: #Basophils 0.1 thou/uL (0.0-0.2); #Eosinphils 0.1 thou/uL (0.0-0.7); #Lymphocytes 1.7 thou/uL (1.20-3.40); #Monocytes 0.6 thou/uL (0.11-0.59); #Neutrophils 8.5 thou/uL (1.40-6.50); %Basophils 0.6 % (0.0-1.0); %Eosinophils 1.3 % (0.0-10.0); %Lymphocytes 15.2 % (21.0-51.0); %Monocytes 5.4 % (0.0-10.0); %Neutrophils 77.5 % (42.0-75.0); Hemoglobin 10.7 g/dL (14.0-18.0); Mean Corpuscular HGB CONC 32.9 g/dL (32.0-36.0); Mean Corpuscular Hemoglobin 29.7 pg (27.0-31.0); Mean Corpuscular Volume 90.4 fL (78.0-98.0); Mean Platelet Volume 9.5 fL (7.4-10.4); Platelet Count 227 thou/uL (130-400); Red Blood Cell (RBC) Count 3.62 mill/uL (4.70-6.10); White Blood Cell (WBC) Count 10.9 thou/uL (4.8-10.8)
--- NOTE | 2018-01-09 05:24 | PDOC.FM ---
- Subjective Subjective: Mr Alvarez is a 87yo male admitted for abdominal pain and diarrhea. Denies abdominal pain but continues to have 1-2 episodes of diarrhea daily. Denies CP, n/v, lightheadedness. - Objective MAR Reviewed: Yes Vital Signs & Weight: Vital Signs (12 hours) Temp Pulse Resp BP BP Pulse Ox 01/09/18 04:00 158/60 H 01/09/18 03:40 97.7 F 70 20 94 L 01/09/18 00:05 98.8 F 58 L 20 96 01/08/18 21:19 142/56 H 01/08/18 20:00 97.8 F 85 20 94 L 01/08/18 19:22 97.8 F 85 20 95 01/08/18 18:23 66 12 94 L Weight Admit Weight 64.4 kg Weight 64.4 kg I&O: 01/07/18 01/08/18 01/09/18 06:59 06:59 06:59 Intake Total 340 500 Balance 340 500 Result Diagrams: 01/09/18 04:55 01/09/18 04:55 <Angella Barber - Last Filed: 01/09/18 09:23> - Objective Vital Signs & Weight: Vital Signs (12 hours) Temp Pulse Resp BP BP BP BP 01/09/18 11:57 172/68 H 01/09/18 11:24 98.1 F 69 16 01/09/18 09:41 82 18 01/09/18 09:09 164/72 H 01/09/18 09:06 164/72 H 01/09/18 08:05 97.4 F L 82 18 01/09/18 07:54 97.4 F L 68 18 01/09/18 04:00 158/60 H 01/09/18 03:40 97.7 F 70 20 Pulse Ox 01/09/18 11:57 01/09/18 11:24 94 L 01/09/18 09:41 95 01/09/18 09:09 01/09/18 09:06 01/09/18 08:05 95 01/09/18 07:54 95 01/09/18 04:00 01/09/18 03:40 94 L Weight Admit Weight 64.4 kg Weight 64.4 kg I&O: 01/08/18 01/09/1818 06:59 06:59 06:59 Intake Total 340 500 Balance 340 500 Result Diagrams: 01/09/18 04:55 01/09/18 04:55 <Henri Sauer - Last Filed: 01/09/18 12:35> Phys Exam - Physical Examination Constitutional: NAD HEENT: moist MMs Respiratory: wheezing present Cardiovascular: RRR Gastrointestinal: soft, positive bowel sounds Musculoskeletal: no edema, pulses present Neurological: moves all 4 limbs Psychiatric: normal affect, A&O x 3 Skin: cap refill <2 seconds <Angella Barber - Last Filed: 01/09/18 09:23> Dx/Plan (1) Renal mass Code(s): N28.89 - OTHER SPECIFIED DISORDERS OF KIDNEY AND URETER Status: Acute (2) Atrial fibrillation Code(s): I48.91 - UNSPECIFIED ATRIAL FIBRILLATION Status: Chronic (3) Bradycardia Code(s): R00.1 - BRADYCARDIA, UNSPECIFIED Status: Acute (4) Leukocytosis Code(s): D72.829 - ELEVATED WHITE BLOOD CELL COUNT, UNSPECIFIED Status: Acute (5) Hypokalemia Code(s): E87.6 - HYPOKALEMIA Status: Acute (6) Normocytic anemia Code(s): D64.9 - ANEMIA, UNSPECIFIED Status: Acute (7) Gastroenteritis Code(s): K52.9 - NONINFECTIVE GASTROENTERITIS AND COLITIS, UNSPECIFIED Status : Acute (8) HLD (hyperlipidemia) Code(s): E78.5 - HYPERLIPIDEMIA, UNSPECIFIED Status: Chronic (9) HTN (hypertension) Code(s): I10 - ESSENTIAL (PRIMARY) HYPERTENSION Status: Chronic (10) COPD (chronic obstructive pulmonary disease) Status: Chronic (11) Restless leg syndrome Status: Chronic (12) Tobacco abuse Code(s): Z72.0 - TOBACCO USE Status: Chronic (13) Abnormal prostate exam Code(s): R39.89 - OTHER SYMPTOMS AND SIGNS INVOLVING THE GENITOURINARY SYSTEM Status: Acute - Plan Plan: Mr Alvarez is a 87yo male with pmh of COPD, A-fib, BPH, HTN, and HLD presenting with severe abdominal pain and diarrhea. 1. A-fib, Bradycardia, PVC's - Asymptomatic - hx of "irregular heartbeat" - Monitor on tele - HR in the 50's, he is asymptomatic - CHADs2-Vasc: 5 - Cardiology Consulted - Mg 1.6, Phos 3.1, TSH 0.90 - Avoid BB's due to bradycardia, no other treatment recommended - Currently not in A-fib - No pauses overnight on Tele - Pt reports cardiology plans to place pacemaker 8:30 morning - Currently holding Xarelto for procedure - Echo report pending 2. Renal Mass on CT scan - No hematuria, dysuria, or urinary changes - UA no blood, no signs of infection - Urology Consulted, thorough exam and recommendations - Also abnormal prostate exam per Urology supporting possible malignancy dx - Urology recommends outpatient F/u. Discussed surgical options with patient. - No PSA testing in this pt with LE <10yrs and no urinary obstructive symptoms. Urinary symptoms developing in the future would warrant PSA testing. 3. Abdominal pain, diarrhea likely 2/2 gastroenteritis vs IBS vs ischemic bowel - CT showed no evidence of aortic dissection - WBC 17.5 - CBC in AM - LR @105ml/hr - C diff neg - Fecal lactoferrin + - Urology recommended GI consult for EGD, pt is currently asymptomatic, may consider in the future - CTA may be helpful in r/o ischemic bowel while patient is having symptoms, this can be followed up outpatient 4. Leukocytosis - likely 2/2 to gastroenteritis - UA- no signs of infection - no other sources for infection - has continued to trend down 5. Normocytic Anemia - could be a result of a Renal cell carcinoma - Continue to monitor 6. Hypokalemia - resolved - Initial K 3.1 - Continue to monitor 7. ALEXANDREA - resolved - unknown baseline - likely 2/2 to dehydration with recent history of diarrhea - IVF & monitor 8. COPD - stable - Continue Spiriva 9. HLD - Continue Atorvastatin 10. BPH - Continue Finesteride and Terazosin 11. HTN - Continue Lisinopril 12. Restless leg - Continue Pramipexole 13. 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 Hx of CAD with Indeterminate Troponins - Inital 0.05-> 0.044 - No chest pain - EKG: no ST/T wave changes concerning for acute ischemia - Continue aspirin DVT ppx: SCDs & Lovenox GI ppx: None indicated Code Status: DNR/DNI Dispo: Pacemaker placement on Sunday, dicharge once medically cleared <Angella Barber - Last Filed: 01/09/18 09:23> Attending Addendum - Attending Addendum Date/Time: 01/09/18 6114 I personally evaluated the patient and discussed the management with Dr. Barber and team. I agree with and repeated the History, Examination, Assessment and Plan documented above with any addition or exceptions noted below. Pt doing well this AM. Legs crossed eating chocolate ice cream. Exam unchanged. Unfortunately now with sinus pauses and scheduled for PM placement tomorrow AM. <Henri Sauer - Last Filed: 01/09/18 12:35>
[2018-01-09 05:34] LABS: Anion Gap 11 mmol/L (10-20); BUN (Urea Nitrogen) 23 mg/dL (8.4-25.7); Calc. Creatinine Clearance 50 mL/min (70-130); Calcium 8.9 mg/dL (7.8-10.44); Carbon Dioxide 27 mmol/L (23-31); Chloride 110 mmol/L (98-107); Estimated GFR-MDRD 75; Glucose 119 mg/dL (83-110); Potassium 3.6 mmol/L (3.5-5.1); Sodium 144 mmol/L (136-145)
[2018-01-09] MEDS ORDERED: Enoxaparin Sodium 60 MG/0.6 ML SYRINGE SC SCH (08:45)
[2018-01-09] MEDS ORDERED: Enoxaparin Sodium 40 MG/0.4 ML SYRINGE SC SCH (08:45)
[2018-01-09] MEDS: Cholecalciferol (Vitamin D3) 400 UNITS TAB PO SCH ×2 (09:09→21:39)
[2018-01-09] MEDS: Lisinopril 10 MG TAB PO SCH ×2 (09:09→21:39)
[2018-01-09] MEDS: Finasteride 5 MG TAB PO SCH (09:11)
[2018-01-09] MEDS: Atorvastatin Calcium 40 MG TAB PO SCH (09:11)
[2018-01-09] MEDS: Pramipexole Di-HCl 0.25 MG TAB PO SCH ×2 (09:12→21:39)
[2018-01-09] MEDS: Sodium Chloride 0.9% 1,000 ML IV SCH ×2 (09:12→21:39)
--- NOTE | 2018-01-09 14:47 | PQF ---
Date: 01-09-18 ATTN: DR. JOSUE VEE / DR. JAELYN MALLORY Please exercise your independent, professional judgment in responding to the clarification form. Clinical indicators are provided on the bottom of this form for your review Please check appropriate box(s): [x] Protein Calorie Malnutrition: [ ] Mild [ x ] Moderate [ ] Severe [ ] Other Malnutrition (please specify) __ [ ] Cachexia [ ] Other diagnosis [ ] Unable to determine In addition, please specify: Present on Admission (POA): [ ] Yes [ ] No [ ] Unable to determine CLINICAL INDICATORS - SIGNS / SYMPTOMS / LABS BMI of 18.7 H&P: PRESENTING WITH SEVERE ABDOMINAL PAIN AND DIARRHEA, REPORTS 35 LB WT LOSS SINCE THAT HE ATTRIBUTES TO FOOD AVERSION FOR FEAR IT MAY CAUSE THE PAIN TO RETURN OR WORSEN EVENT NOTE 01-07-18: TEMPORAL WASTING AND SUPRACLAVICULAR WASTING SUPERCALENDER OPERATOR HELPER CONSULT 01-08-18: The pt notes his appetite has been lower and he has been eating small portions since . He limits his intake as he is scared eating too much will cause abdominal pain to begin. About once per month since March the pt gets severe abdominal pain that lasts several days and is relieved by BMs. About 1 week ago pain started worsening. The pt notes he has chronic diarrhea, but will occasionally have more formed stools. He has lost from usual wt of 150-155# down to 143# in last 7 months; Muscle wasting noted to temples and clavicles, fat wasting noted to orbit and chest/ribs, report of self-limiting po intake 2' fear of pain RISK FACTORS: SUPERCALENDER OPERATOR HELPER CONSULT 01-09-18: HX COPD, afib, HTN, hyperlipidemia , CVA, CAD, AL; The pt notes he has chronic diarrhea, but will occasionally have more formed stools. He has lost from usual wt of 150-155# down to 143# in last 7 months; TREATMENT: SUPERCALENDER OPERATOR HELPER CONSULT 01-09-18: 1. Continue regular diet. 2. RD will add Might[employer] Shakes BID. 3. Provide bowel regimen prn. 4. Recommend daily MVI. Moderate Malnutrition (in acute illness) Energy Intake: <75% of estimated energy requirement for > 7 days Weight Loss: 1-2%/1 week; 5%/ 1 month; 7.5%/3 months Other: mild body fat loss; mild muscle mass loss; mild fluid accumulation; Severe Malnutrition (in acute illness) Energy Intake: < 50% of estimated energy requirement for > 5 days Weight Loss: >1-2%/1 week; >5%/1 month; >7.5%/3 months Other: moderate body fat loss; moderate muscle mass loss; moderate- severe fluid accumulation; measurably reduced hall worker strength Moderate Malnutrition (in chronic illness) Energy Intake: <75% of estimated energy requirement for >1 month Weight Loss: 5%/1 month; 7.5%/3 months; 10%/6 months; 20%/1 year Other: mild body fat loss; mild muscle mass loss; mild fluid accumulation Severe Malnutrition (in chronic illness) Energy Intake: <75% of estimated energy requirement for >1 month Weight Loss: >5%/1 month; >7.5%/3 months; >10%/6 months; >20%/1 year Other: severe body fat loss; severe muscle mass loss; severe fluid accumulation ; measurably reduced hall worker strength (This form is maintained as a part of the permanent medical record) 2014 [employer]. All Rights Reserved [email or web address] [email or web address] Office: [phone] Change to severe - Isabell Mallory MD. [facility] CENTERWilliam
[2018-01-09] MEDS: Terazosin HCl 5 MG CAP PO SCH (21:39)
[2018-01-10] MEDS: Ipratropium Bromide 2.5 ml Neb NEB SCH ×5 (00:26→19:39)
--- NOTE | 2018-01-10 05:05 | PDOC.FM ---
- Subjective Subjective: Mr Alvarez is a 87yo male admitted for abdominal pain and diarrhea. Denies abdominal pain but continues to have 1-2 episodes of diarrhea daily. Denies CP, n/v, lightheadedness. He is NPO for his surgery today. - Objective MAR Reviewed: Yes Vital Signs & Weight: Vital Signs (12 hours) Temp Pulse Resp BP Pulse Ox 01/10/18 03:15 97.6 F 78 22 H 95 01/10/18 03:02 81 22 H 01/09/18 23:40 98.1 F 80 20 93 L 01/09/18 21:39 180/60 H 01/09/18 20:00 98.1 F 65 20 95 01/09/18 19:15 98.1 F 65 20 95 01/09/18 18:22 72 16 Weight Admit Weight 64.4 kg Weight 64.4 kg I&O: 01/08/18 01/09/18 01/10/18 06:59 06:59 06:59 Intake Total 340 500 Balance 340 500 Result Diagrams: 01/10/18 05:21 01/10/18 05:21 <Angella Barber - Last Filed: 01/10/18 10:34> - Objective Vital Signs & Weight: Vital Signs (12 hours) Temp Pulse Resp BP Pulse Ox 01/10/18 11:53 97.5 F L 78 16 94 L 01/10/18 07:41 99.4 F 81 16 93 L 01/10/18 04:25 176/82 H 01/10/18 03:15 97.6 F 78 22 H 95 01/10/18 03:02 81 22 H Weight Admit Weight 64.4 kg Weight 64.4 kg I&O: 01/09/18 01/10/18 01/11/18 06:59 06:59 06:59 Intake Total 500 1235 Balance 500 1235 Result Diagrams: 01/10/18 05:21 01/10/18 05:21 <Henri Sauer - Last Filed: 01/10/18 12:27> Phys Exam - Physical Examination Constitutional: NAD Respiratory: wheezing present Cardiovascular: RRR Gastrointestinal: soft, non-tender, positive bowel sounds Musculoskeletal: no edema, pulses present Neurological: moves all 4 limbs Psychiatric: normal affect, A&O x 3 Skin: cap refill <2 seconds <Angella Barber - Last Filed: 01/10/18 10:34> Dx/Plan (1) Renal mass Code(s): N28.89 - OTHER SPECIFIED DISORDERS OF KIDNEY AND URETER Status: Acute (2) Atrial fibrillation Code(s): I48.91 - UNSPECIFIED ATRIAL FIBRILLATION Status: Chronic (3) Bradycardia Code(s): R00.1 - BRADYCARDIA, UNSPECIFIED Status: Acute (4) Leukocytosis Code(s): D72.829 - ELEVATED WHITE BLOOD CELL COUNT, UNSPECIFIED Status: Acute (5) Hypokalemia Code(s): E87.6 - HYPOKALEMIA Status: Acute (6) Normocytic anemia Code(s): D64.9 - ANEMIA, UNSPECIFIED Status: Acute (7) Gastroenteritis Code(s): K52.9 - NONINFECTIVE GASTROENTERITIS AND COLITIS, UNSPECIFIED Status : Acute (8) HLD (hyperlipidemia) Code(s): E78.5 - HYPERLIPIDEMIA, UNSPECIFIED Status: Chronic (9) HTN (hypertension) Code(s): I10 - ESSENTIAL (PRIMARY) HYPERTENSION Status: Chronic (10) COPD (chronic obstructive pulmonary disease) Status: Chronic (11) Restless leg syndrome Status: Chronic (12) Tobacco abuse Code(s): Z72.0 - TOBACCO USE Status: Chronic (13) Abnormal prostate exam Code(s): R39.89 - OTHER SYMPTOMS AND SIGNS INVOLVING THE GENITOURINARY SYSTEM Status: Acute - Plan Plan: Mr Alvarez is a 87yo male with pmh of COPD, A-fib, BPH, HTN, and HLD presenting with severe abdominal pain and diarrhea. 1. A-fib, Bradycardia, PVC's - Asymptomatic - hx of "irregular heartbeat" - Monitor on tele - HR in the 50's, he is asymptomatic - CHADs2-Vasc: 5 - Cardiology Consulted - Mg 1.6, Phos 3.1, TSH 0.90 - Avoid BB's due to bradycardia, no other treatment recommended - Currently not in A-fib - No pauses overnight on Tele - Currently holding Xarelto for procedure - Echo: LV function mildly depressed. EF 45-50%. Hypokinesis of basal lateral and posterior wall of LV. Akinetic motion of basal inferior wall. LEft atrium mildly dilated. Enlarged RA. Severe mitral regurg, moderate , mild/mod tricuspid regurg - Pacemaker placement today 2. Renal Mass on CT scan - No hematuria, dysuria, or urinary changes - UA no blood, no signs of infection - Urology Consulted, thorough exam and recommendations - Also abnormal prostate exam per Urology supporting possible malignancy dx - Urology recommends outpatient F/u. Discussed surgical options with patient. - No PSA testing in this pt with LE <10yrs and no urinary obstructive symptoms. Urinary symptoms developing in the future would warrant PSA testing. 3. Abdominal pain, diarrhea likely 2/2 gastroenteritis vs IBS vs ischemic bowel - CT showed no evidence of aortic dissection - WBC 17.5 - CBC in AM - LR @105ml/hr - C diff neg - Fecal lactoferrin + - Urology recommended GI consult for EGD, pt is currently asymptomatic, may consider in the future - CTA may be helpful in r/o ischemic bowel while patient is having symptoms, this can be followed up outpatient 4. Leukocytosis - likely 2/2 to gastroenteritis - UA- no signs of infection - no other sources for infection - has continued to trend down 5. Normocytic Anemia - could be a result of a Renal cell carcinoma - Continue to monitor 6. Hypokalemia - resolved - Initial K 3.1 - Continue to monitor 7. ALEXANDREA - resolved - unknown baseline - likely 2/2 to dehydration with recent history of diarrhea - IVF & monitor 8. COPD - stable - Continue Spiriva 9. HLD - Continue Atorvastatin 10. BPH - Continue Finesteride and Terazosin 11. HTN - Continue Lisinopril 12. Restless leg - Continue Pramipexole 13. Tobacco Abuse - Otc Clerk regarding cessation 14. Hx of CAD with Indeterminate Troponins - Inital 0.05-> 0.044 - No chest pain - EKG: no ST/T wave changes concerning for acute ischemia - Continue aspirin DVT ppx: SCDs & Lovenox GI ppx: None indicated Code Status: DNR/DNI Dispo: Pacemaker placement on Sunday, dicharge once medically cleared <Angella Barber - Last Filed: 01/10/18 10:34> Attending Addendum - Attending Addendum Date/Time: 01/10/18 1221 I personally evaluated the patient and discussed the management with Dr. Barber and team. I agree with and repeated the History, Examination, Assessment and Plan documented above with any addition or exceptions noted below. Doing very well post PM, no complaints. Hopeful d/c if cards ok. We discussed previously need for follow up with urology, cardiology, and his primary. His abdominal symptoms are still resolved. His leukocytosis is stable, and his other laboratory abnormalities are stable or improved. <Henri Sauer - Last Filed: 01/10/18 12:27>
[2018-01-10 05:33] LABS: #Eosinphils 0.1 thou/uL (0.0-0.7); #Lymphocytes 1.7 thou/uL (1.20-3.40); #Monocytes 0.8 thou/uL (0.11-0.59); #Neutrophils 10.3 thou/uL (1.40-6.50); %Basophils 0.1 % (0.0-1.0); %Neutrophils 79.9 % (42.0-75.0); Hemoglobin 11.4 g/dL (14.0-18.0); Mean Corpuscular HGB CONC 33.3 g/dL (32.0-36.0); Mean Corpuscular Hemoglobin 30.1 pg (27.0-31.0); Mean Corpuscular Volume 90.4 fL (78.0-98.0); Mean Platelet Volume 9.4 fL (7.4-10.4); Platelet Count 244 thou/uL (130-400); RBC Distribution Width 13.2 % (11.5-14.5); Red Blood Cell (RBC) Count 3.78 mill/uL (4.70-6.10); White Blood Cell (WBC) Count 12.9 thou/uL (4.8-10.8)
[2018-01-10 05:43] LABS: Anion Gap 12 mmol/L (10-20); BUN (Urea Nitrogen) 19 mg/dL (8.4-25.7); Calc. Creatinine Clearance 53 mL/min (70-130); Calcium 9.1 mg/dL (7.8-10.44); Carbon Dioxide 24 mmol/L (23-31); Chloride 111 mmol/L (98-107); Estimated GFR-MDRD 81; Glucose 88 mg/dL (83-110); Potassium 3.4 mmol/L (3.5-5.1); Sodium 144 mmol/L (136-145)
[2018-01-10] MEDS ORDERED: Potassium Chloride 20 MEQ/100 ML PREMIX BAG IVPB SCH (06:00)
[2018-01-10] MEDS ORDERED: CEFAZOLIN 1 GM VIAL ONE (08:14)
[2018-01-10] MEDS ORDERED: CEFAZOLIN/Water 2 GM/20 ML SYRINGE ONE (08:14)
[2018-01-10] MEDS ORDERED: Gentamicin 80 MG/2 ML VIAL ONE (08:15)
[2018-01-10] MEDS ORDERED: Midazolam HCl 2 mg/2 ml Vial ONE (08:26)
[2018-01-10] MEDS ORDERED: Fentanyl 100 MCG/2 ML VIAL ONE (08:27)
[2018-01-10] MEDS ORDERED: Lidocaine 1% (PF) 30 ML VIAL ONE ×2 (08:47→08:56)
[2018-01-10] MEDS ORDERED: Metoprolol Tartrate 5 MG/5 ML VIAL ONE (09:27)
[2018-01-10] MEDS ORDERED: Dronedarone HCl 400 MG TAB PO SCH (10:15)
[2018-01-10] MEDS: Lisinopril 10 MG TAB PO SCH ×3 (10:39→19:59)
[2018-01-10] MEDS: Cholecalciferol (Vitamin D3) 400 UNITS TAB PO SCH ×3 (10:39→19:59)
[2018-01-10] MEDS: Finasteride 5 MG TAB PO SCH ×2 (10:39→12:14)
[2018-01-10] MEDS: Atorvastatin Calcium 40 MG TAB PO SCH ×2 (10:39→12:14)
[2018-01-10] MEDS: Pramipexole Di-HCl 0.25 MG TAB PO SCH ×3 (10:39→20:19)
[2018-01-10] MEDS ORDERED: Metoprolol Tartrate 25 MG TAB PO SCH (11:00)
[2018-01-10] MEDS ORDERED: Potassium Chloride 20 MEQ TAB PO SCH (11:00)
[2018-01-10] MEDS: Sodium Chloride 0.9% 1,000 ML IV SCH (12:17)
--- NOTE | 2018-01-10 13:03 | RAD ---
TWO AP VIEWS CHEST: INDICATIONS: Post cardiac device placement. COMPARISON: None. FINDINGS: There is a dual-lead pacemaker along the left chest wall. There is mild COPD type change. The leads project in the expected positions. No pneumothorax is demonstrated. No pleural effusion is noted. IMPRESSION: Pacemaker placement without gross evidence of complications. POS: [facility]
[2018-01-10] MEDS: Cephalexin 250 MG CAP PO SCH ×2 (17:09→20:00)
[2018-01-10] MEDS: Dronedarone HCl 400 MG TAB PO SCH (17:09)
[2018-01-10] MEDS: Terazosin HCl 5 MG CAP PO SCH (18:17)
[2018-01-10] MEDS: Metoprolol Tartrate 50 MG TAB PO SCH (20:00)
--- NOTE | 2018-01-10 22:40 | CCL ---
PROCEDURE: Permanent pacemaker placement. INDICATION: 4.7 second sinus pause, severe sinus bradycardia with frequent PVCs. The patient was brought to cardiac dental laboratory technician apprentice and the left subclavian area was prepped and draped. The patient was given Versed 1 mg and fentanyl 25 mg intravenously and this was repeated once during the case. 1% lidocaine was infiltrated in the area. A J-wire was placed into the left subclavian vein. Pacemaker pocket was manufactured using blunt and sharp dissection with electrocautery for hemostasis. Antibiotic solution soaked gauze was placed into the subcutaneous pocket. A second J-wire was then placed into the left subclavian vein. Using a 7 [place] peel-away sheaths, the ventricular and atrial leads were inserted. The ventricular lead was screwed into the right ventricular apex. The atrial lead was screwed into the right atrium. Ventricular lead -- R-wave 5.7, impedance 624, threshold 0.3 volts. Right atrial -- atrial fibrillation wave - 1.7, impedance 541 (patient in atrial fibrillation during the procedure). The tabs on the suture tie downs were removed and both leads were secured in place with two sutures of 0 silk. The antibiotic solution soaked gauze was removed from the pocket and this was irrigated with copious amounts of antibiotic solution. Leads were attached to the pacemaker generator and this was placed into the pocket and secured in place with one suture of 0 silk. Incision was then closed using two layers of running 3-0 Vicryl, one layer running 4-0 Vicryl. Dermabond was placed on the incision. The patient tolerated the procedure well. LAURA
[2018-01-11] MEDS: Ipratropium Bromide 2.5 ml Neb NEB SCH ×3 (00:45→14:00)
--- NOTE | 2018-01-11 04:55 | PDOC.FM ---
- Subjective Subjective: Mr Alvarez is a 87yo male with pmh of COPD, A-fib, BPH, HTN, and HLD presenting with severe abdominal pain and diarrhea. Denies abdominal pain but continues to have 1-2 episodes of diarrhea daily. Denies CP, n/v, lightheadedness. Feels ready to go home today. - Objective MAR Reviewed: Yes Vital Signs & Weight: Vital Signs (12 hours) Temp Pulse Resp BP Pulse Ox 01/11/18 04:00 98.1 F 61 18 146/58 H 96 01/11/18 00:00 98.0 F 72 18 118/62 94 L 01/10/18 20:43 98.2 F 63 16 01/10/18 20:00 98.1 F 73 20 131/70 96 01/10/18 19:39 63 16 96 Weight Admit Weight 64.4 kg Weight 63.503 kg I&O: 01/09/18 01/10/18 01/11/18 06:59 06:59 06:59 Intake Total 500 1235 Output Total 3728 Balance 500 1235 -3728 Result Diagrams: 01/11/18 05:13 01/11/18 05:13 <Angella Barber - Last Filed: 01/11/18 11:32> - Objective Vital Signs & Weight: Vital Signs (12 hours) Temp Pulse Resp BP Pulse Ox 01/11/18 11:19 98.1 F 62 16 137/63 95 01/11/18 08:50 99.0 F 70 20 94 L 01/11/18 07:53 99.0 F 70 20 176/81 H 94 L 01/11/18 04:00 98.1 F 61 18 146/58 H 96 Weight Admit Weight 64.4 kg Weight 63.503 kg I&O: 01/10/18 01/11/18 01/12/18 06:59 06:59 06:59 Intake Total 1235 810 Output Total 3728 Balance 1235 -2918 Result Diagrams: 01/11/18 05:13 01/11/18 05:13 <Du Horn - Last Filed: 01/11/18 13:36> Phys Exam - Physical Examination Constitutional: NAD Respiratory: wheezing present Cardiovascular: RRR Gastrointestinal: soft, non-tender, positive bowel sounds Musculoskeletal: no edema, pulses present Neurological: moves all 4 limbs Psychiatric: normal affect, A&O x 3 Skin: cap refill <2 seconds <Angella Barber - Last Filed: 01/11/18 11:32> Dx/Plan (1) Renal mass Code(s): N28.89 - OTHER SPECIFIED DISORDERS OF KIDNEY AND URETER Status: Acute (2) Atrial fibrillation Code(s): I48.91 - UNSPECIFIED ATRIAL FIBRILLATION Status: Chronic (3) Bradycardia Code(s): R00.1 - BRADYCARDIA, UNSPECIFIED Status: Acute (4) Leukocytosis Code(s): D72.829 - ELEVATED WHITE BLOOD CELL COUNT, UNSPECIFIED Status: Acute (5) Hypokalemia Code(s): E87.6 - HYPOKALEMIA Status: Acute (6) Normocytic anemia Code(s): D64.9 - ANEMIA, UNSPECIFIED Status: Acute (7) Gastroenteritis Code(s): K52.9 - NONINFECTIVE GASTROENTERITIS AND COLITIS, UNSPECIFIED Status : Acute (8) HLD (hyperlipidemia) Code(s): E78.5 - HYPERLIPIDEMIA, UNSPECIFIED Status: Chronic (9) HTN (hypertension) Code(s): I10 - ESSENTIAL (PRIMARY) HYPERTENSION Status: Chronic (10) COPD (chronic obstructive pulmonary disease) Status: Chronic (11) Restless leg syndrome Status: Chronic (12) Tobacco abuse Code(s): Z72.0 - TOBACCO USE Status: Chronic (13) Abnormal prostate exam Code(s): R39.89 - OTHER SYMPTOMS AND SIGNS INVOLVING THE GENITOURINARY SYSTEM Status: Acute (14) Urinary retention Code(s): R33.9 - RETENTION OF URINE, UNSPECIFIED Status: Acute - Plan Plan: Mr Alvarez is a 87yo male with pmh of COPD, A-fib, BPH, HTN, and HLD presenting with severe abdominal pain and diarrhea. 1. A-fib, Bradycardia, PVC's - Asymptomatic - hx of "irregular heartbeat" - Monitor on tele - HR in the 50's, he is asymptomatic - CHADs2-Vasc: 5 - Cardiology Consulted - Mg 1.6, Phos 3.1, TSH 0.90 - Avoid BB's due to bradycardia, no other treatment recommended - Currently not in A-fib - Echo: LV function mildly depressed. EF 45-50%. Hypokinesis of basal lateral and posterior wall of LV. Akinetic motion of basal inferior wall. LEft atrium mildly dilated. Enlarged RA. Severe mitral regurg, moderate , mild/mod tricuspid regurg - Pacemaker placement yesterday 2. Renal Mass on CT scan - No hematuria, dysuria, or urinary changes - UA no blood, no signs of infection - Urology Consulted, thorough exam and recommendations - Also abnormal prostate exam per Urology supporting possible malignancy dx - Urology recommends outpatient F/u. Discussed surgical options with patient. - No PSA testing in this pt with LE <10yrs and no urinary obstructive symptoms. Urinary symptoms developing in the future would warrant PSA testing. 3. Abdominal pain, diarrhea likely 2/2 gastroenteritis vs IBS vs ischemic bowel - CT showed no evidence of aortic dissection - WBC 17.5 - CBC in AM - C diff neg - Fecal lactoferrin + - Urology recommended GI consult for EGD, pt is currently asymptomatic, may consider in the future - CTA may be helpful in r/o ischemic bowel while patient is having symptoms, this can be followed up outpatient 4. Leukocytosis - likely 2/2 to gastroenteritis - UA- no signs of infection - no other sources for infection - has continued to trend down 5. Normocytic Anemia - could be a result of a Renal cell carcinoma - Continue to monitor 6. Urinary Retention - 3200mL 1x straight cath yesterday after pacemaker procedure - 160mL post-residual overnight but no problems since - Monitor today prior to d/c 7. Hypokalemia - resolved - Initial K 3.1 - Continue to monitor 8. ALEXANDREA - resolved - unknown baseline - likely 2/2 to dehydration with recent history of diarrhea - Monitor 9. COPD - stable - Continue Spiriva 10. HLD - Continue Atorvastatin 11. BPH - Continue Finesteride and Terazosin 12. HTN - Continue Lisinopril 13. Restless leg - Continue Pramipexole 14. Tobacco Abuse - Program Management Professional regarding cessation 15. Hx of CAD with Indeterminate Troponins - Inital 0.05-> 0.044 - No chest pain - EKG: no ST/T wave changes concerning for acute ischemia - Continue aspirin DVT ppx: SCDs GI ppx: None indicated Code Status: DNR/DNI Dispo: Likely discharge home today <Angella Barber - Last Filed: 01/11/18 11:32> Attending Addendum - Attending Addendum Date/Time: 01/11/18 6970 I personally evaluated the patient and discussed the management with Dr. Barber I agree with the History, Examination, Assessment and Plan documented above with any addition or exceptions noted below. Patient able to void this am. Patient s/p pacemaker yesterday site clean without sign infection. Patient is stable for dismissal will f/u with PCP in [place] to continue w/u renal mass. <Du Horn - Last Filed: 01/11/18 13:36>
[2018-01-11 05:36] LABS: #Eosinphils 0.1 thou/uL (0.0-0.7); #Lymphocytes 1.7 thou/uL (1.20-3.40); #Monocytes 0.7 thou/uL (0.11-0.59); #Neutrophils 8.7 thou/uL (1.40-6.50); %Basophils 0.2 % (0.0-1.0); %Eosinophils 1.2 % (0.0-10.0); %Lymphocytes 15.3 % (21.0-51.0); %Monocytes 6.5 % (0.0-10.0); %Neutrophils 76.9 % (42.0-75.0); Hemoglobin 10.5 g/dL (14.0-18.0); Mean Corpuscular HGB CONC 32.9 g/dL (32.0-36.0); Mean Corpuscular Hemoglobin 29.6 pg (27.0-31.0); Mean Corpuscular Volume 89.8 fL (78.0-98.0); Mean Platelet Volume 9.3 fL (7.4-10.4); Platelet Count 242 thou/uL (130-400); RBC Distribution Width 13.1 % (11.5-14.5); Red Blood Cell (RBC) Count 3.55 mill/uL (4.70-6.10); White Blood Cell (WBC) Count 11.3 thou/uL (4.8-10.8)
[2018-01-11 05:41] LABS: Anion Gap 11 mmol/L (10-20); BUN (Urea Nitrogen) 22 mg/dL (8.4-25.7); Calc. Creatinine Clearance 51 mL/min (70-130); Calcium 8.6 mg/dL (7.8-10.44); Carbon Dioxide 25 mmol/L (23-31); Chloride 111 mmol/L (98-107); Estimated GFR-MDRD 79; Glucose 100 mg/dL (83-110); Potassium 3.5 mmol/L (3.5-5.1); Sodium 143 mmol/L (136-145)
[2018-01-11] MEDS: Cholecalciferol (Vitamin D3) 400 UNITS TAB PO SCH (08:49)
[2018-01-11] MEDS: Atorvastatin Calcium 40 MG TAB PO SCH (08:50)
[2018-01-11] MEDS: Pramipexole Di-HCl 0.25 MG TAB PO SCH (08:50)
[2018-01-11] MEDS: Dronedarone HCl 400 MG TAB PO SCH ×2 (08:51→16:40)
[2018-01-11] MEDS: Lisinopril 10 MG TAB PO SCH (08:51)
[2018-01-11] MEDS: Finasteride 5 MG TAB PO SCH (08:52)
[2018-01-11] MEDS: Metoprolol Tartrate 50 MG TAB PO SCH (08:52)
[2018-01-11] MEDS: Cephalexin 250 MG CAP PO SCH ×2 (09:06→14:43)
[2018-01-11 15:54] VITALS: BP 174/89; TEMP 97.6
[2018-01-11] MEDS ORDERED: Apixaban 2.5 MG TAB PO SCH (21:00)
--- NOTE | 2018-01-12 03:51 | DIS-2 ---
DATE OF ADMISSION: 01/07/2018 DATE OF DISCHARGE: 01/11/2018 RESIDENT: Angella Barber M.D. PGY1 ADMITTING ATTENDING: Solomon Bertrand M.D. DISCHARGE ATTENDING: Du Horn M.D. CONSULTATIONS: Cardiology (Dr. Goodman) PROCEDURES: Echocardiogram- EF 45-50%, hypokinesis of basal lateral, inferior and posterior wall. Left and right atrium dilation. Mod , mild/mod TR CT- right renal mass, renal cysts, hepatic cysts, aortic atherosclerotic disease Pacemaker placement PRIMARY DIAGNOSES: 1. Atrial fibrillation, bradycardia, premature ventricular contractions, sinus pause. 2. Renal mass on CT scan. 3. Abdominal pain, diarrhea, likely secondary to gastroenteritis. SECONDARY DIAGNOSES: 1. Normocytic anemia. 2. Urinary retention. 3. Hypokalemia, resolved. 4. Acute kidney injury, resolved. 5. Benign prostatic hypertrophy. 6. Chronic obstructive pulmonary disease. 7. Hyperlipidemia. 8. Hypertension. 9. Restless leg syndrome. 10. Tobacco abuse. 11. Coronary artery disease with intermediate troponins. 12. Coronary artery disease. 13. Leukocytosis. DISCHARGE MEDICATIONS: 1. Atorvastatin 40 mg daily. 2. Keflex 250 three times daily for 5 days. 3. Vitamin D 400 units b.i.d. 4. Multaq 400 mg b.i.d. 5. Finasteride 5 mg daily. 6. Ensure Enlive 237 mL b.i.d. 7. Lisinopril 10 mg daily. 8. Metoprolol 50 mg b.i.d. 9. Pramipexole 0.25 mg b.i.d. 10. Xarelto 20 mg daily. 11. Terazosin 10 mg at bedtime. 12. Spiriva b.i.d. HISTORY OF PRESENT ILLNESS AND HOSPITAL COURSE: Mr. Alvarez is an 87-year-old male with past medical history of COPD, atrial fibrillation, BPH, hypertension, and hyperlipidemia who presented with severe abdominal pain and diarrhea. Abdominal CT was done that found an incidental right renal mass and infrarenal thrombus. An EKG was performed showing atrial fibrillation, bradycardia in the 40s and PVCs. He was admitted to [facility]. Urology was consulted for renal mass and on exam they found an abnormal prostate exam was noted concerning for malignancy. They recommended outpatient followup for the renal mass and discussed surgical options with the patient. They recommended no PSA since pt is 87 with no urinary obstructive symptoms. If they develop in the future this would warrant PSA testing. Abdominal pain resolved the morning of his hospital admission, but he continued to have 1-2 loose watery stools during his hospital stay, his fecal lactoferrin came back positive. This could be further evaluated outpatient with GI if abdominal pain returns in the future. His asymptomatic bradycardia with PVCs, he was noted to have a 4.7 second pause prior to discharge. Cardiology was consulted and felt that a pacemaker was warranted. Pacemaker surgery was without complications and he was discharged the next day. He did have some urinary retention after surgery that required straight catheterization, but his urinary retention has resolved prior to discharge. He was noted to have a normocytic anemia, this is likely a result of his renal cell carcinoma. He had a creatinine bump during his stay that resolved with IV fluids. As for his chronic conditions of COPD, hyperlipidemia, BPH, hypertension, restless leg, his home medications were continued and they were stable throughout his stay. DISPOSITION: Stable. DISCHARGE INSTRUCTIONS: 1. Location: Home, he plans to stay with family in [place] over the weekend and return back to [place] sometime next week with frequent stops. 2. Diet: Heart healthy, low sodium. 3. Activity: No restrictions. 4. Followup: Recommend following up with Cardiology in [place] early next week to check incision site. Recommended follow up with Urology for renal mass. See a medical psychotherapist if abdominal pain recurs is also an option. LAURA
--- NOTE | 2018-01-12 17:36 | EKG ---
Test Reason : Blood Pressure : / mmHG Vent. Rate : 048 BPM Atrial Rate : 056 BPM P-R Int : 188 ms QRS Dur : 094 ms QT Int : 458 ms P-R-T Axes : -16 080 032 degrees QTc Int : 410 ms Atrial fibrillation with Premature supraventricular complexes with occasional Premature ventricular c omplexes Possible Inferior infarct , age undetermined Abnormal ECG Confirmed by MAREK HERNÁNDEZ MD ([id number]), state editor JERICA WALDEN ([id number] on 01/12/2018 5:35:59 PM Referred By: Confirmed By:MAREK HERNÁNDEZ MD
== END 2018-01-11 16:50 | disposition home or self-care (01) | DRG 243 ==
LOC: SCSER 09:43 → 2SE 11:11
PROVIDERS: ADMIT Student in an Organized Health Care Education/Training Program; ATTEND Student in an Organized Health Care Education/Training Program
PROC: 0JH606Z Insertion of Pacemaker, Dual Chamber into Chest Subcutaneous Tissue and Fascia, Open Approach (ICD-10-PCS; principal; 2018-01-10)
PROC: 02H63JZ Insertion of Pacemaker Lead into Right Atrium, Percutaneous Approach (ICD-10-PCS; 2018-01-10)
PROC: 02HK3JZ Insertion of Pacemaker Lead into Right Ventricle, Percutaneous Approach (ICD-10-PCS; 2018-01-10)
PROC: B24BYZZ Ultrasonography of Heart with Aorta using Other Contrast (ICD-10-PCS; 2018-01-10)
PROC: 8E0WXBF Computer Assisted Procedure of Trunk Region, With Fluoroscopy (ICD-10-PCS; 2018-01-10)
DX: I48.0 Paroxysmal atrial fibrillation (principal); Z68.1 Body mass index [BMI] 19.9 or less, adult; E44.0 Moderate protein-calorie malnutrition; N17.9 Acute kidney failure, unspecified; K52.9 Noninfective gastroenteritis and colitis, unspecified; N28.89 Other specified disorders of kidney and ureter; J44.9 Chronic obstructive pulmonary disease, unspecified; E78.5 Hyperlipidemia, unspecified; I25.10 Atherosclerotic heart disease of native coronary artery without angina pectoris; I25.2 Old myocardial infarction; E87.6 Hypokalemia; D72.829 Elevated white blood cell count, unspecified; D64.9 Anemia, unspecified; E86.0 Dehydration; I12.9 Hypertensive chronic kidney disease with stage 1 through stage 4 chronic kidney disease, or unspecified chronic kidney disease; N18.2 Chronic kidney disease, stage 2 (mild); N40.1 Benign prostatic hyperplasia with lower urinary tract symptoms; G25.81 Restless legs syndrome; F17.210 Nicotine dependence, cigarettes, uncomplicated; Z86.73 Personal history of transient ischemic attack (TIA), and cerebral infarction without residual deficits; I49.5 Sick sinus syndrome; R33.8 Other retention of urine
CPT/HCPCS: 33208; 36415; 71045; 71275; 80048; 80053; 80061; 81001; 82550; 82553; 83605; 83630; 83690; 83735; 84100; 84443; 84484; 85025; 86850; 86900; 86901; 87324; 87449; 93005; 93010; 93306; 93798; 94640; 96360; 99152; 99153; A4216; C1785; C1898; J0690; J1580; J1650; J2001; J2250; J3010; J7120; J7644

== ENCOUNTER 2018-01-11 22:52 | Emergency (ER) | payer MEDICARE ==
[2018-01-11 23:36] LABS: Bilirubin Negative (Negative); Blood, Urine Trace (Negative); Clarity Clear (Clear); Glucose, Urine (Dipstick) Negative (Negative); Leukocyte Negative (Negative); Nitrite Negative (Negative); Protein, Urine (Dipstick) 100 mg/dL (Neg-Trace); Urobilinogen 0.2 mg/dL (0.2-1.0)
[2018-01-11 23:41] LABS: Bacteria/HPF None Seen HPF (None Seen); Crystals/HPF 1+ AMORPH PHOS HPF (Negative); Hyaline Casts/LPF 4-6 HYALINE CAST LPF (0-3 Hyaline); Squamous Epithelial 0-3 HPF (0-3); WBC/HPF 0-3 HPF (0-3)
== END 2018-01-12 | disposition home or self-care (01) ==
LOC: SCSER 22:52
DX: R33.9 Retention of urine, unspecified (principal); J44.9 Chronic obstructive pulmonary disease, unspecified; F17.210 Nicotine dependence, cigarettes, uncomplicated; I48.91 Unspecified atrial fibrillation; Z79.899 Other long term (current) drug therapy
CPT/HCPCS: 51702; 81003; 81015; 87086

== ENCOUNTER 2018-01-13 17:09 | Emergency (ER) | payer MEDICARE ==
[2018-01-13 18:20] LABS: #Eosinphils 0.2 thou/uL (0.0-0.7); #Monocytes 0.5 thou/uL (0.11-0.59); #Neutrophils 8.3 thou/uL (1.40-6.50); %Basophils 0.4 % (0.0-1.0); %Eosinophils 1.6 % (0.0-10.0); %Lymphocytes 17.9 % (21.0-51.0); %Monocytes 4.2 % (0.0-10.0); %Neutrophils 75.8 % (42.0-75.0); Hemoglobin 9.8 g/dL (14.0-18.0); Mean Corpuscular HGB CONC 34.1 g/dL (32.0-36.0); Mean Corpuscular Hemoglobin 28.7 pg (27.0-31.0); Mean Corpuscular Volume 84.3 fL (78.0-98.0); Mean Platelet Volume 9.9 fL (7.4-10.4); Platelet Count 263 thou/uL (130-400); RBC Distribution Width 12.5 % (11.5-14.5); Red Blood Cell (RBC) Count 3.41 mill/uL (4.70-6.10)
[2018-01-13 18:35] LABS: ALT (SGPT) 14 U/L (8-55); AST (SGOT) 17 U/L (5-34); Albumin 3.2 g/dL (3.4-4.8); Alkaline Phosphatase 113 U/L (40-150); Anion Gap 13 mmol/L (10-20); BUN (Urea Nitrogen) 20 mg/dL (8.4-25.7); Bilirubin, Total 0.3 mg/dL (0.2-1.2); Calc. Creatinine Clearance 0 mL/min (70-130); Calcium 8.7 mg/dL (7.8-10.44); Carbon Dioxide 26 mmol/L (23-31); Chloride 109 mmol/L (98-107); Estimated GFR-MDRD 79; Globulin 2.2 g/dL (2.4-3.5); Glucose 105 mg/dL (83-110); Potassium 3.5 mmol/L (3.5-5.1); Protein, Total 5.4 g/dL (5.8-8.1); Sodium 144 mmol/L (136-145)
[2018-01-13 19:15] LABS: Bilirubin Negative (Negative); Blood, Urine Large (Negative); Glucose, Urine (Dipstick) Negative (Negative); Leukocyte Trace (Negative); Nitrite Negative (Negative); Protein, Urine (Dipstick) 100 mg/dL (Neg-Trace); Urobilinogen 0.2 mg/dL (0.2-1.0)
[2018-01-13 19:16] LABS: Clarity Hazy (Clear)
[2018-01-13 19:28] LABS: Bacteria/HPF None Seen HPF (None Seen); Hyaline Casts/LPF 0-3 HYALINE CAST LPF (0-3 Hyaline); RBC/HPF 21-50 HPF (0-3); Squamous Epithelial 0-3 HPF (0-3); WBC/HPF 0-3 HPF (0-3)
== END 2018-01-13 19:07 | disposition home or self-care (01) ==
LOC: SCSER 17:09
DX: R31.9 Hematuria, unspecified (principal); D50.0 Iron deficiency anemia secondary to blood loss (chronic); I48.91 Unspecified atrial fibrillation; N40.0 Benign prostatic hyperplasia without lower urinary tract symptoms; R33.8 Other retention of urine; E78.5 Hyperlipidemia, unspecified; I10 Essential (primary) hypertension; F17.210 Nicotine dependence, cigarettes, uncomplicated; Z79.899 Other long term (current) drug therapy
CPT/HCPCS: 51700; 80053; 81003; 81015; 85025

== ENCOUNTER 2018-02-19 05:23 | Emergency (ER) | payer MEDICARE ==
[2018-02-19] MEDS ORDERED: Piperacillin/Tazobactam 4.5 GM VIAL ONE (05:54)
[2018-02-19 05:59] LABS: #Eosinphils 0.1 thou/uL (0.0-0.7); #Lymphocytes 0.8 thou/uL (1.20-3.40); #Monocytes 0.4 thou/uL (0.11-0.59); #Neutrophils 9.1 thou/uL (1.40-6.50); %Basophils 0.1 % (0.0-1.0); %Eosinophils 0.7 % (0.0-10.0); %Lymphocytes 7.8 % (21.0-51.0); %Monocytes 4.2 % (0.0-10.0); %Neutrophils 87.2 % (42.0-75.0); Hemoglobin 9.3 g/dL (14.0-18.0); Mean Corpuscular HGB CONC 31.6 g/dL (32.0-36.0); Mean Corpuscular Hemoglobin 29.5 pg (27.0-31.0); Mean Corpuscular Volume 93.5 fL (78.0-98.0); Mean Platelet Volume 9.3 fL (7.4-10.4); Platelet Count 165 thou/uL (130-400); Red Blood Cell (RBC) Count 3.16 mill/uL (4.70-6.10); White Blood Cell (WBC) Count 10.4 thou/uL (4.8-10.8)
[2018-02-19 06:12] LABS: ALT (SGPT) 22 U/L (8-55); AST (SGOT) 23 U/L (5-34); Albumin 2.8 g/dL (3.4-4.8); Alkaline Phosphatase 117 U/L (40-150); Anion Gap 10 mmol/L (10-20); BUN (Urea Nitrogen) 35 mg/dL (8.4-25.7); Bilirubin, Total 0.6 mg/dL (0.2-1.2); CK (CPK) 18 U/L (30-200); Calc. Creatinine Clearance 0 mL/min (70-130); Calcium 8.6 mg/dL (7.8-10.44); Carbon Dioxide 37 mmol/L (23-31); Chloride 103 mmol/L (98-107); Estimated GFR-MDRD 63; Globulin 2.2 g/dL (2.4-3.5); Glucose 152 mg/dL (83-110); Potassium 3.9 mmol/L (3.5-5.1); Sodium 146 mmol/L (136-145)
[2018-02-19 06:16] LABS: CKMB 1.6 ng/mL (0-6.6); Troponin I 0.206 ng/mL (< 0.028)
--- NOTE | 2018-02-19 07:27 | RAD ---
SINGLE VIEW OF THE CHEST: COMPARISON: 01/10/18. HISTORY: Right lower lobe infiltrate. FINDINGS: A single view of the chest shows a cardiomediastinal silhouette which is enlarged. A pacemaker is se en with its leads in the right atrium and ventricle. There are small bilateral pleural effusions. A djacent atelectasis versus infiltrate is seen in the right lower lobe. IMPRESSION: 1. Cardiomegaly. 2. Bilateral pleural effusions. 3. Right basilar atelectasis versus infiltrate. POS: [facility]
[2018-02-19 09:46] LABS: Troponin I 0.206 ng/mL (< 0.028)
--- NOTE | 2018-02-19 09:49 | HP ---
[facility] call referral from the emergency department. The patient discharged yesterday from [facility] post-stroke to [facility], referred here for shortness of breath and hypoxemia. The bob ent has a very complicated recent medical history. They were in [facility] in December, require d a pacemaker on 02/01/2018 and admitted to the [facility] where the patient was admitt ed with GI bleeding, no bleeding site was determined. The patient's anticoagulation was held. The [facility] orozco had a CVA, was admitted to [facility] on 02/13/2018 and was discharged by history to [facility] yesterday and is admitted here. Patient has evidence on chest x-ray and physica l exam of the right lower lobe pneumonia. Patient is currently on BiPAP for O2 support. I have not yet found room air saturation on the patient. No blood gas was done in the emergency room. 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 He had a pacemaker placed on 01/10/2018 at [facility]. He has a history o f atrial fibrillation, chronic obstructive pulmonary disease, hypertension. During his last hospital ization, an echocardiogram showed cardiomyopathy 40%-45% EF, moderate aortic stenosis, severe mitral regurgitation, history of coronary artery disease, post myocardial infarction, history of BPH, histor y of tobacco abuse, PEG tube placed in the last week after CVA. CURRENT MEDICATIONS: Eliquis 5 mg twice a day, aspirin 81 mg a day, atorvastatin 40 mg a day, Multaq 400 mg twice a day, Lasix 20 mg a day, Lopressor 12.5 mg twice a day, potassium chloride 20 mEq per 15 mL a day, pramipexole 0.25 mg a day. All of these were given by PEG. ALLERGIES: No known drug allergies. PAST SURGICAL HISTORY: Carpal tunnel right wrist, PEG tube recent. FAMILY HISTORY: Mother, brain cancer. Father of stroke. SOCIAL HISTORY: Visiting here with family, has been hospitalized three times follow up visiting here from [facility]. Has a history of smoking a half a pack a day. DNR status; living will discussed with family. REVIEW OF SYSTEMS: Unobtainable due to patient's nonverbal status. PHYSICAL EXAMINATION: GENERAL: He is awake, nonverbal. VITAL SIGNS: Blood pressure 113/62, pulse 60, respirations 14 on BiPAP, temperature 97.8. HEENT: Examination of head, eyes, ears, nose, and throat reveal pupils are equal, round, reactive. Extraocular movements are intact. Sclerae are white. Tympanic membranes are clear. Nose is clear. Oral mucous membranes are wet. He is on BiPAP. NECK: No jugular venous distention, adenopathy or thyromegaly. CHEST: Poor inspiratory effort, rales in right lower lobe, scattered rhonchi. CARDIAC: Regular rate and rhythm. No EKG presented, 3/6 holosystolic murmur. ABDOMEN: Soft, bowel sounds normal. PEG present. No hepatosplenomegaly, no mass, no rebound. EXTREMITIES: 1+ edema, no cyanosis or clubbing. SKIN: Warm and dry. HEME/LYMPH: No tender or swollen lymph nodes. NEUROLOGIC: Cranial nerves II-XII grossly intact. He is nonverbal. Dense left spastic hemiplegia. Deep tendon reflexes increased on the left. Toe upgoing on the left. IMAGING DATA: Chest x-ray reviewed by me, cardiomegaly, bilateral pleural effusions, right lower lob e infiltrate. Pacemaker left upper chest. LABORATORY DATA: Sodium 146, potassium 3.9, chloride 103, CO2 37, creatinine 1.1, BUN 25, BNP 2,800. Troponin 0.2. Liver function test unremarkable. CBC: White count 10.4, hemoglobin 9.3, normocyti c normochromic indices, platelet count 105. ADMITTING DIAGNOSES: 1. Acute respiratory failure on BiPAP. 2. Right lower lobe pneumonia. 3. Cardiomyopathy. 4. Aortic stenosis. 5. Mitral regurgitation. 6. Anticoagulation. 7. Atrial fibrillation. 8. Chronic obstructive pulmonary disease. 9. Hypertension. PLAN: Blood cultures have been obtained. Antibiotics have been started since the patient was recent ly discharged from [facility] in [place]. We are attempting to transfer the pa gali back there for continuing care. If he is not transferred, I will give further plans at the [facility] I put in admitting orders.
[2018-02-19 13:14] LABS: Troponin I 0.227 ng/mL (< 0.028)
--- NOTE | 2018-02-23 17:13 | EKG ---
Test Reason : Blood Pressure : / mmHG Vent. Rate : 065 BPM Atrial Rate : 288 BPM P-R Int : 000 ms QRS Dur : 092 ms QT Int : 422 ms P-R-T Axes : 000 029 216 degrees QTc Int : 438 ms Poor data quality, interpretation may be adversely affected Demand pacemaker; interpretation is based on intrinsic rhythm Atrial fibrillation with premature ventricular or aberrantly conducted complexes Cannot rule out Inferior infarct , age undetermined Abnormal ECG Confirmed by VOLODYMYR PARRA DO ([id number]), proposal editor JERICA WALDEN ([id number]) on 02/23/2018 5:13:14 PM Referred By: Confirmed By:VOLODYMYR PARRA DO
== END 2018-02-19 13:34 | disposition short-term general hospital (02) ==
LOC: ERS 05:23 → UNDOADMIN 08:01 → ERHOLD 08:01 → ERS 13:34
DX: I21.4 Non-ST elevation (NSTEMI) myocardial infarction (principal); I48.91 Unspecified atrial fibrillation; N40.0 Benign prostatic hyperplasia without lower urinary tract symptoms; E78.5 Hyperlipidemia, unspecified; I10 Essential (primary) hypertension; F17.210 Nicotine dependence, cigarettes, uncomplicated; Z79.82 Long term (current) use of aspirin; Z79.899 Other long term (current) drug therapy
CPT/HCPCS: 36415; 71045; 80053; 82553; 83605; 83880; 84484; 87040; 93005; 94660; 96365; J1956; J2543